=== PATIENT | male | born 1970 | race Caucasian/White ===

== ENCOUNTER → 2020-10-14 | Outpatient (CLI) | payer BC, OTHER ==
[2017-09-13 14:34] VITALS: BP 113/83
[~2020-10-14] MED LIST: ALBU2.5V8 IH; ASPI-886 PO; ATOR40TA59 PO; FEXO180T16 PO; FLUT1DIS3 IH; HYDR-2765 PO; Nicotine 21MG TD
--- NOTE | 2020-10-14 14:01 | KCIC ---
EXAM: Lumbar spine MRI without contrast. HISTORY: Lumbar radiculopathy. TECHNIQUE: Multiplanar, multisequence magnetic resonance imaging of the lumbar spine was performed wi thout contrast. COMPARISON: None. FINDINGS: There is 3 mm retrolisthesis of L5 on S1. There is degenerative endplate remodeling with di sc space narrowing at L4-L5 and L5-S1. There is additional endplate remodeling at the remainder of th e lumbar and lower thoracic levels. There are multiple endplate Schmorl's nodes. There are few osseou s hemangiomas. There is no suspicious osseous lesion. There is no fracture. The conus terminates at L 1. At L1-L2,, L2-L3 and L3-L4, there is no stenosis. At L4-L5, there is a broad-based right paracentral to right foraminal disc protrusion and annular tea r with 4 mm anterior extrusion. There is a smaller shallow left paracentral to lateral recess disc pr otrusion and annular tear with 2 mm inferior extrusion. These are superimposed on a disc bulge and ri ght lateral predominant endplate osteophytosis. There is mild bilateral facet arthropathy. There is m ild right foraminal stenosis with abutment the exiting right L4 nerve root. There is also suspected a butment or near abutment of the exiting left L4 nerve root within the extraforaminal space. There is mild central canal stenosis and effacement of the right lateral recess with deviation of the traversi ng right nerve roots. There is also narrowing of the left lateral recess and abutment the traversing left L5 nerve root. At L5-S1, there is a broad-based left paracentral to foraminal disc protrusion and annular tear with 4 mm inferior extrusion. There is also a right foraminal disc protrusion. These are superimposed on a disc bulge and endplate osteophytosis. There is retrolisthesis. There is mild to moderate right and mild left foraminal stenosis with abutment of the exiting L5 nerve roots. There is narrowing of the l eft lateral recess and abutment the traversing left S1 nerve root. IMPRESSION: Degenerative change predominantly at the lower lumbar levels, described in detail above. This is associated with mild right foraminal and central canal stenosis and effacement of the right l ateral recess and narrowing of the left lateral recess at L4-L5, and [id number] right and mild left foraminal stenosis and narrowing of the left lateral recess at L5-S1. Electronically signed by: Destiny Reed MD (10/14/2020 1:59 PM) [facility]
== END ==
LOC: KCIC MRI 12:32
PROVIDERS: ATTEND Family Medicine
DX: M47.26 Other spondylosis with radiculopathy, lumbar region (principal); M48.07 Spinal stenosis, lumbosacral region; M43.17 Spondylolisthesis, lumbosacral region
CPT/HCPCS: 72148

== ENCOUNTER → 2020-11-12 | Outpatient (CLI) | payer OTHER ==
[2017-09-13 14:34] VITALS: BP 113/83
[~2020-11-12] MED LIST changes: +CYCL10TA2 PO; +IOHEXOL 180 MG/ML 10 ML VIAL. ONE; +NAPR-514 PO; +OMEP20CA16 PO; +methylPREDNISolone ACETATE 40 MG/ML VIAL. ONE; +methylPREDNISolone ACETATE 80 MG/ML VIAL. ONE
--- NOTE | 2020-11-12 15:09 | PDOC1 ---
INITIAL PAIN CONSULT DATE OF SERVICE: DOS: DATE: 11/12/20 TIME: 15:03 CHIEF COMPLAINT: Chief Complaint: Low back and left lower extremity pain HISTORY OF PRESENT ILLNESS: 50-year-old male presents history of pain low back left lower extremity for about 2 months not the result of any specific injury or accident that he is aware of is increasing with time getting worse with time in the low back and radiating the left low back and posterior thigh posterior lateral thigh anterior thigh medial thigh posterior calf lateral calf to the ankle worse with walking and standing better with sitting or laying down but is awaken from sleep least once or twice a night patient reports it does not affect his bowel bladder control does affect his ability to walk a fair extent however he does not use any assistive devices today to ambulate. Patient rates the pain is sharp and stabbing described as shooting into the leg radiating with tingling sensations changes during the day worse with activity aching and sometimes cramping in the leg as well patient rates his disability rating 0-10 10 being worst is a 1 with family home with possibilities 8 with recreational activities 5 with social activity 6 with occupational activity 7 with sexual behavior 4 with self-care and life support activities. RI scan of the lumbar spine dated October 14, 2020 showing degenerative changes in the lower lumbar levels with mild right foraminal and central canal stenosis and effacement of the right lateral recess and narrowing of the left lateral recess at L4-5 mild to moderate right and mild left foraminal stenosis and narrowing of the left lateral recess at L5-S1. Patient reports no loss of motor function with significant fatigability of the left foot especially with weightbearing standing or walking. Patient has had some physical therapy in the past and is doing some of the exercises with that as well currently but has not decreased the pain significance also taking naproxen and a muscle relaxer Flexeril which is not decreasing the pain as well. PAST MEDICAL HISTORY: PMH: , Cigarette smoking PREVIOUS SURGERIES: Past Surgical Hx: Spinal decompression 2013 CURRENT MEDICATIONS: Current Meds: Active Scripts Medications Dose Route/Sig Max Daily Dose Days Date Category Omeprazole 20 Mg Capsule. 1 Cap PO DAILY 11/12/20 Reported Cyclobenzaprine Hcl 10 Mg Tablet 1 Tab PO TID PRN 11/12/20 Reported Naproxen 500 Mg Tablet 1 Tab PO BID PRN 30 11/12/20 Reported Atorvastatin Calcium 40 Mg Tablet 40 Mg PO QHS 30 09/13/17 Rx Aspirin Ec (Aspirin) 81 Mg Tablet.dr 81 Mg PO DAILYWBKFT 30 09/13/17 Rx ALLERGIES; Allergies: Coded Allergies: No Known Drug Allergies (Unverified , 07/12/13) FAMILY HISTORY: Family Hx: Heart disease, cancers SOCIAL HISTORY: Social Hx: Patient is alcohol very rarely smokes about a pack a day has for over 30 years does not use any illegal illicit recreational drugs lives with his spouse lives locally in [facility] REVIEW OF SYSTEMS: ROS: Positive for those items mentioned in history of present illness, all systems are reviewed, otherwise negative ,and are complete full and well-documented on patient's chart. PHYSICAL EXAM: VS: Blood pressures 160/96 pulse 78 respirations 18 temperature 98.5 F height is 5 feet 8 inches weight 178 pounds PE: PHYSICAL EXAMINATION: GENERAL: The patient is awake, alert, oriented, appropriate, very pleasant demeanor HEENT: Shows normocephalic, atraumatic. Extraocular movements are intact and symmetrical. Oral cavity: Mucous membranes moist and pink. Dentition is intact. Patient has full muniz and mustache. NECK: Shows anterior throat supple without palpable lymphadenopathy noted. Swallow reflex symmetrical. CHEST: Shows normal on inspection. Breath sounds are clear bilaterally, no rales rhonchi wheezes auscultated. HEART: Shows S1, S2 clear. No murmurs auscultated. ABDOMEN: Soft, nontender, nondistended, obese. No palpable organomegaly is noted. No rebound or guarding demonstrated. BACK: Shows spine grossly in the midline. Normal-appearing cervical lordotic curvature. There is slightly increased thoracic kyphosis, some flattening of the lumbar lordotic curvature. Lumbar paraspinous muscles show symmetrical on inspection, on palpation shows some moderate tenderness diffusely throughout the upper, middle and lower distribution of the paraspinous muscles bilaterally and also into the lower thoracic paraspinous musculature, firm and tender, but without specific trigger points, without radiation of pain. The patient has good rotational motion of the lumbar spine, both laterally as well as extension and flexion without significant difficulty. No tenderness over the spinous processes, sacrum or sacroiliac regions. EXTREMITIES: Lower extremities show deep tendon reflexes 2+ in the patellar and tendo calcaneus tendons. Motor exam is 5 on a scale of 5 with right dorsiflexion, extension, quadriceps and hamstring flexion and 4/5 on the left. Peripheral pulses are 1+ posterior tibial. No peripheral edema is noted bilaterally. Lower extremities are warm and dry to touch, equal in color and appearance. Straight leg raise noted to be negative on the right, left side is positive at approximately 40 degrees decreased with knee flexion. Gaenslen's and Kevan's maneuvers are negative bilaterally. The patient is able to stand, stand on his toes without significant difficulty but has difficulty putting all of his weight on his left leg and walks with a slight favoring gait not using any assistive devices however. SKIN: Shows warm and dry, good turgor. No edema. No sores, rashes or bruising throughout. IMPRESSION: Impression: 50-year-old male with approximate 2-month history increasing pain low back left lower extremity radicular fashion MRI scan lumbar spine as noted COPD Cigarette smoking Hearing loss Plan: Options were discussed the patient including conservative medical management physical therapies and interventional techniques. Patient would like to interventional techniques. We discussed a lumbar epidural steroid injection using description as well as anatomical models described procedure. Risks were discussed including but not limited to: Bleeding, infection, possibility of epidural hematoma and subsequent neurological compromise, dural puncture, headaches, spinal cord and/or nerve damage, side effects of steroid medication, and poor results regarding pain control. Patient understands and wished to proceed. Patient will return to the clinic in approximate 2 weeks for follow- up, was counseled as to return appointment activity level and side effects to be aware of. Procedure is lumbar epidural steroid injection under local anesthetic using sterile prep and drape at the L4-5 level using C-arm fluoroscopic guidance in both AP and lateral views medications injected is 120 mg Depo-Medrol +10mL preservative-free normal saline and 2 mL contrast- condition at discharge is stable patient tolerated procedure well had no complications. ELSA COVINGTON MD November 12, 2020 15:09
== END | disposition home or self-care (01) ==
LOC: PNCL 13:14
PROVIDERS: ATTEND Anesthesiology
DX: M54.5 Low back pain (principal); M79.605 Pain in left leg; J44.9 Chronic obstructive pulmonary disease, unspecified; F17.210 Nicotine dependence, cigarettes, uncomplicated; Z79.82 Long term (current) use of aspirin; Z79.899 Other long term (current) drug therapy; Z98.890 Other specified postprocedural states
CPT/HCPCS: 62323; J1030; J1040; Q9965

== ENCOUNTER → 2020-12-16 | Outpatient (CLI) | payer OTHER ==
[2017-09-13 14:34] VITALS: BP 113/83
--- NOTE | 2020-12-16 13:03 | PDOC4 ---
PROCEDURE Procedure Patient was consented for lumbar epidural steroid injection. Risks were dis cussed including but not limited to: Bleeding, infection, possibility of epidural hematoma and subsequent neurological compromise, dural puncture, headaches, spinal cord and/or nerve damage, side effects of steroid medication, and poor results regarding pain control. Patient understands and wished to proceed. Procedure is lumbar epidural steroid injection under local anesthetic using sterile prep and drape at the L4-5 level using C-arm fluoroscopic guidance in both AP and lateral views medications injected is 120 mg Depo-Medrol +10mL preservative-free normal saline and 2 mL contrast- condition at discharge is stable patient tolerated procedure well had no complications. ELSA COVINGTON MD Dec 16, 2020 13:03
--- NOTE | 2020-12-16 13:03 | PDOC ---
Progress Note - Pain Clinic Date of Service: DOS: DATE: 12/16/20 TIME: 13:00 Diagnosis: Dx: Lumbar degenerative lumbar degenerative disease and lumbar spinal stenosis History or Present Illness: HPI: 50-year-old male returns for follow-up status post lumbar epidural steroid. Patient reports that 80% improvement after the last injection but the pain returning after about 3 weeks where the pain is increasing the low back the left lower extremity in the posterior gluteus lateral thigh anterior thigh medial thigh and the low back bilaterally. Patient reports that sharp and tight shooting in the left lower extremity stabbing and radiating on and off in intensity patient reports is an 8 on scale 10 is worse over the past week 5 on average to its least is a 5 today. Patient reports no new motor or sensory deficit for the first 3 weeks so he was doing much better with walking standing changing positions doing work activities household activities greater ease and comfort and sleeping better at night patient reports still is not awakening from sleep at night. Patient reports no new motor or sensory deficits no new bowel or bladder incontinence or other complaints. Physical Exam: VS: Blood pressure is 129/86 pulse 81 respirations 18 temperature 90.2 F height is 5 feet 8 inches weight is 178 pounds PE: PHYSICAL EXAMINATION: GENERAL: The patient is awake, alert, oriented, appropriate, very pleasant in demeanor HEENT: Shows normocephalic, atraumatic. Extraocular movements are intact and symmetrical. Oral cavity: Mucous membranes moist and pink. Dentition is intact. NECK: Shows anterior throat supple without palpable lymphadenopathy noted. Swallow reflex symmetrical. CHEST: Shows normal on inspection. Breath sounds are clear bilaterally, coarse but no rales rhonchi or wheezes auscultated. HEART: Shows S1, S2 clear. No murmurs auscultated. ABDOMEN: Soft, nontender, nondistended, obese. No palpable organomegaly is noted. No rebound or guarding demonstrated. BACK: Shows spine grossly in the midline. Normal-appearing cervical lordotic curvature. There is slightly increased thoracic kyphosis, some minor flattening of the lumbar lordotic curvature. Lumbar paraspinous muscles show symmetrical on inspection, on palpation shows some moderate tenderness diffusely throughout the upper, middle and lower distribution of the paraspinous muscles without specific trigger points, without radiation of pain. The patient has good rotational motion of the lumbar spine, both laterally as well as extension and flexion without significant difficulty. EXTREMITIES: Lower extremities show deep tendon reflexes 2+ in the patellar and tendo calcaneus tendons. Motor exam is 5 on a scale of 5 with right dorsiflexion, extension, quadriceps and hamstring flexion and 4/5 on the left. Peripheral pulses are 1+ posterior tibial. No peripheral edema is noted bilaterally. Lower extremities are warm and dry. SKIN: Shows warm and dry, good turgor. No edema. No sores, rashes or bruising throughout. Procedure: Procedure: Options discussed with patient. Patient chart reviewed his current medication regimen updated current review of systems updated today as well. We will proceed with a second in the series lumbar epidural to injection stable fluoroscopic guidance. Risks were discussed including but not limited to: Bleeding, infection, possibility of epidural hematoma and subsequent neurological compromise, dural puncture, headaches, spinal cord and/or nerve damage, side effects of steroid medication, and poor results regarding pain control. Patient understands and wished to proceed. Patient return to the clinic in approximate 2 weeks for follow-up, was counseled as return appointment activity level and side effects to be aware of. Medication Injected: Med Injected: Procedure is lumbar epidural steroid injection under local anesthetic using sterile prep and drape at the L4-5 level using C-arm fluoroscopic guidance in both AP and lateral views medications injected is 120 mg Depo-Medrol +10mL preservative-free normal saline and 2 mL contrast- condition at discharge is stable patient tolerated procedure well had no complications. Condition at Discharge: Condition at Discharge: Condition at discharge stable, patient already the procedure well and had no complications. ELSA COVINGTON MD Dec 16, 2020 13:03
== END | disposition home or self-care (01) ==
LOC: PNCL 11:44
PROVIDERS: ATTEND Anesthesiology
DX: M51.36 Other intervertebral disc degeneration, lumbar region (principal); M48.061 Spinal stenosis, lumbar region without neurogenic claudication; J44.9 Chronic obstructive pulmonary disease, unspecified; F17.210 Nicotine dependence, cigarettes, uncomplicated; Z79.82 Long term (current) use of aspirin; Z79.899 Other long term (current) drug therapy; Z72.89 Other problems related to lifestyle; Z98.890 Other specified postprocedural states; Z82.49 Family history of ischemic heart disease and other diseases of the circulatory system
CPT/HCPCS: 62323; J1030; J1040; Q9965

== ENCOUNTER 2021-01-18 17:35 | Observation (INO) | payer OTHER ==
[~2021-01-18] VITALS: Ht 172.7 cm; Wt 79.4 kg
[~2021-01-18 17:35] MED LIST changes: -IOHEXOL 180 MG/ML 10 ML VIAL. ONE; -methylPREDNISolone ACETATE 40 MG/ML VIAL. ONE; -methylPREDNISolone ACETATE 80 MG/ML VIAL. ONE
[2021-01-18] MEDS ORDERED: NITROGLYCERIN SUBLINGUAL 0.4 MG BOTTLE OF 25. SL PRN (18:00)
[2021-01-18 18:06] LABS: BASO % 0 % (0-3); EOS # 0.3 x10^3/uL (0.0-0.7); EOS % 3 % (0-3); HEMATOCRIT 42.6 % (39.0-53.0); HEMOGLOBIN 14.5 g/dL (13.0-17.5); LYMPH # 1.7 x10^3/uL (1.0-4.8); LYMPH % 15 % (24-48); MEAN CORPUSCULAR HEMOGLOBIN 32 pg (25-35); MEAN CORPUSCULAR HGB CONC 34 g/dL (31-37); MEAN CORPUSCULAR VOLUME 94 fL (79-100); MONO # 0.7 x10^3/uL (0.0-1.1); MONO % 6 % (0-9); NEUT # 8.4 x10^3/uL (1.8-7.7); NEUT % 75 % (31-73); PLATELET COUNT 298 x10^3/uL (140-400); RED BLOOD COUNT 4.54 x10^6/uL (4.30-5.70); RED CELL DISTRIBUTION WIDTH 15.3 % (11.5-14.5); WHITE BLOOD COUNT 11.1 x10^3/uL (4.0-11.0)
[2021-01-18 18:21] LABS: CREATININE 1.2 mg/dL (0.7-1.3); GFR 64.4; POTASSIUM 4.3 mmol/L (3.5-5.1)
[2021-01-18 18:28] LABS: ALBUMIN 3.5 g/dL (3.4-5.0); ALBUMIN/GLOBULIN RATIO 0.9 (1.0-1.7); DIRECT BILIRUBIN 0.1 mg/dL (0.0-0.2); MAGNESIUM 2.2 mg/dL (1.8-2.4); TOTAL BILIRUBIN 0.5 mg/dL (0.2-1.0); TOTAL PROTEIN 7.4 g/dL (6.4-8.2)
[2021-01-18] MEDS ORDERED: ASPIRIN CHEWABLE 81 MG TABLET. PO ONE (18:30)
--- NOTE | 2021-01-18 18:30 | RAD ---
AP chest. HISTORY: Chest pain AP view was taken of the chest. Lungs are free of infiltrates. Heart is normal in size. There is no p leural effusion. IMPRESSION: 1. No acute infiltrates. Electronically signed by: Greg Perez MD (01/18/2021 6:28 PM) [facility]
[2021-01-18] MEDS ORDERED: MORPHINE SULFATE 4 MG/ML INJ. IV PRN (20:15)
--- NOTE | 2021-01-18 20:20 | PHYS DOC ---
Past Medical History Past Medical History: Asthma, COPD (MIKE FABIAN APRN) Past Surgical History: No Surgical History (MIKE FABIAN APRN) Smoking Status: Current Every Day Smoker Alcohol Use: None Drug Use: None (MIKE FABIAN APRN) General Adult EDM: Chief Complaint: CHEST PAIN HPI: HPI: Patient is a 50 year old male presents to the emergency department with chief complaint of left-sided chest pain that started last night, patient states it did not hurt so much last night but when he woke up this morning it was at an 8 out of 10. Patient states he did not take any medications for this pain. Patient states he does come to the emergency department for evaluation as he has had an IL in the past. Patient reports he was told he had a IL 3 years ago, reports a negative heart cath and did not have any stents placed. Patient states he is not followed up with a hoe runner as was recommended. Patient states he just did not feel like following up. Patient reports he does smoke cigarettes, drinks an occasional beer every now and then, does not use any illicit drugs. Patient states he takes an 81 mg aspirin daily, omeprazole, and allergy pill, ProAir and Advair for COPD. Patient denies shortness of breath, denies any increased pain with inspiration or expiration or movement. Patient states the pain is constant and does not radiate. Patient denies any diaphoretic episodes. Patient denies any recent fever or chills, denies nausea, vomiting, diarrhea, or abdominal pain. Patient denies any increased thirst or increased urination. She denies any rashes of his skin. Patient states he has not had the COVID-19 vaccination, patient denies any need for this vaccination. Patient denies any other physical complaints or physical concerns. (MIKE FABIAN APRN) Review of Systems: Review of Systems: 14 body systems of review of systems have been reviewed. See HPI for pertinent positives and negative responses, otherwise all other systems are negative, nonpertinent or noncontributory. Constitutional: Negative except as outlined in HPI above. Skin: Negative except as outlined in HPI above. Eyes: Negative except as outlined in HPI above. HENT: Negative except as outlined in HPI above. Respiratory: Negative except as outlined in HPI above. Cardiovascular: Negative except as outlined in HPI above. GI: Negative except as outlined in HPI above. : Negative except as outlined in HPI above. Musculoskeletal: Negative except as outlined in HPI above. Integument: Negative except as outlined in HPI above. Neurologic: Negative except as outlined in HPI above. Endocrine: Negative except as outlined in HPI above. Lymphatic: Negative except as outlined in HPI above. Psychiatric: Negative except as outlined in HPI above. (MIKE FABIAN APRN) Heart Score: C/O Chest Pain: Yes HEART Score for Chest Pain: HEART Score for Chest Pain Response (Comments) Value History Moderately Suspicious 1 ECG Normal 0 Age >45 - < 65 1 Risk Factors 1 or 2 Risk Factors 1 Troponin < Normal Limit 0 Total 3 Risk Factors: Risk Factors: DM, Current or recent (<one month) smoker, HTN, HLP, family history of CAD, obesity. Risk Scores: Score 0 - 3: 2.5% MACE over next 6 weeks - Discharge Home Score 4 - 6: 20.3% MACE over next 6 weeks - Admit for Clinical Observation Score 7 - 10: 72.7% MACE over next 6 weeks - Early Invasive Strategies (MIKE FABIAN APRN) Current Medications: Current Medications Medications (Trade) Dose Ordered Sig/Neri Start Time Stop Time Status Last Admin Dose Admin Aspirin (Aspirin Chewable) 243 mg 1X ONCE 01/18/21 18:30 01/18/21 18:31 DC 01/18/21 18:57 243 MG Nitroglycerin (Nitrostat) 0.4 mg PRN Q5MIN PRN 01/18/21 18:00 01/19/21 17:59 01/18/21 19:01 0.4 MG (MIKE FABIAN APRN) Allergies: Allergies: Allergies Coded Allergies Type Severity Reaction Last Updated Verified No Known Drug Allergies 07/12/13 No (MIKE FABIAN APRN) Physical Exam: PE: Constitutional: Well developed, well nourished, no acute distress, non-toxic appearance. 50-year-old male appears uncomfortable, is holding the left side of his chest. HENT: Normocephalic, atraumatic. Eyes: Conjunctiva normal, no discharge. Neck: Normal range of motion, no stridor. Cardiovascular: No cyanosis appreciated, distal cap refill less than 2 seconds. Heart sounds S1-S2, no regular rate and rhythm, no murmur appreciated. Lungs & Thorax: Patient is in no respiratory distress, no audible adventitious lung sounds appreciated. Lung sounds clear all lung rdoas, no adventitious lung sounds appreciated. Abdomen: Nontender, no abnormalities noted. Skin: Warm, dry, no erythema, no rash. Back: No tenderness, no deformities. Extremities: No tenderness, no cyanosis, no clubbing, ROM intact, no edema. Neurologic: Alert and oriented X 3, normal motor function, normal sensory function, no focal deficits noted. Psychologic: Affect normal, judgement normal, mood normal. (MIKE FABIAN APRN) Current Patient Data: Labs: Laboratory Tests Test 01/18/21 17:48 White Blood Count 11.1 x10^3/uL (4.0-11.0) H Red Blood Count 4.54 x10^6/uL (4.30-5.70) Hemoglobin 14.5 g/dL (13.0-17.5) Hematocrit 42.6 % (39.0-53.0) Mean Corpuscular Volume 94 fL (79-100) Mean Corpuscular Hemoglobin 32 pg (25-35) Mean Corpuscular Hemoglobin Concent 34 g/dL (31-37) Red Cell Distribution Width 15.3 % (11.5-14.5) H Platelet Count 298 x10^3/uL (140-400) Neutrophils (%) (Auto) 75 % (31-73) H Lymphocytes (%) (Auto) 15 % (24-48) L Monocytes (%) (Auto) 6 % (0-9) Eosinophils (%) (Auto) 3 % (0-3) Basophils (%) (Auto) 0 % (0-3) Neutrophils # (Auto) 8.4 x10^3/uL (1.8-7.7) H Lymphocytes # (Auto) 1.7 x10^3/uL (1.0-4.8) Monocytes # (Auto) 0.7 x10^3/uL (0.0-1.1) Eosinophils # (Auto) 0.3 x10^3/uL (0.0-0.7) Basophils # (Auto) 0.0 x10^3/uL (0.0-0.2) Sodium Level 135 mmol/L (136-145) L Potassium Level 4.3 mmol/L (3.5-5.1) Chloride Level 99 mmol/L (98-107) Carbon Dioxide Level 30 mmol/L (21-32) Anion Gap 6 (6-14) Blood Urea Nitrogen 17 mg/dL (8-26) Creatinine 1.2 mg/dL (0.7-1.3) Estimated GFR (Cockcroft-Gault) 64.4 BUN/Creatinine Ratio 14 (6-20) Glucose Level 116 mg/dL (70-99) H Calcium Level 9.0 mg/dL (8.5-10.1) Magnesium Level 2.2 mg/dL (1.8-2.4) Total Bilirubin 0.5 mg/dL (0.2-1.0) Direct Bilirubin 0.1 mg/dL (0.0-0.2) Aspartate Amino Transferase (AST) 22 U/L (15-37) Alanine Aminotransferase (ALT) 43 U/L (16-63) Alkaline Phosphatase 212 U/L (46-116) H Troponin I Quantitative < 0.017 ng/mL (0.000-0.055) KD-Jnl-G-Type Natriuretic Peptide 102 pg/mL (0-124) Total Protein 7.4 g/dL (6.4-8.2) Albumin 3.5 g/dL (3.4-5.0) Albumin/Globulin Ratio 0.9 (1.0-1.7) L Lipase 97 U/L (73-393) Laboratory Tests 01/18/21 17:48 Laboratory Tests 01/18/21 17:48 Vital Signs: Vital Signs Date Time Temp Pulse Resp B/P (MAP) Pulse Ox O2 Delivery O2 Flow Rate FiO2 01/18/21 19:01 91 149/81 01/18/21 17:36 98.5 16 100 Room Air 98.5 (MIKE FABIAN APRN) EKG: EKG: EKG performed at 1740 by ED nursing staff shows a normal sinus rhythm without ectopy heart rate 96 bpm, TN interval 0.130, QTc interval 0.433, no ACS, no acute STEMI, no ischemia appreciated, EKG interpreted by ED attending physician Dr. Jameson. Serial EKG #2 performed at 1900 by ED nursing staff shows a normal sinus rhythm without ectopy, heart rate 91 bpm, TN interval 0.132, QTc interval 0.433, no acute STEMI, no ACS, no acute ischemia appreciated, EKG interpreted by ED attending physician Dr. Winchester. (MIKE FABIAN APRN) Radiology/Procedures: Radiology/Procedures: PATIENT: JAMES HUNTER ACCOUNT: [id number] : 1970 LOCATION: ER AGE: 50 SEX: M EXAM STATUS: REG ER ORD. PHYSICIAN: MIKE FABIAN APRN REASON: CHEST PAIN PROCEDURE: PORTABLE CHEST 1V AP chest. HISTORY: Chest pain AP view was taken of the chest. Lungs are free of infiltrates. Heart is normal in size. There is no pleural effusion. IMPRESSION: 1. No acute infiltrates. Electronically signed by: Greg Perez MD (01/18/2021 6:28 PM) [facility] DICTATED and SIGNED BY: GREG PEREZ MD DATE: 01/18/21 [id number] (MIKE FABIAN APRN) Course & Med Decision Making: Course & Med Decision Making Pertinent Labs and Imaging studies reviewed. (See chart for details) 50-year-old male, vital signs reviewed, presents emergency department concerning chest pain that started last night as mild and was worse when he woke up this morning. Patient physical examination was on remarkable however patient did appear uncomfortable during examination. With patient's report of IL 3 years ago without follow-up with cardiology and continues to be a daily cigarette smoker will order ED chest pain work-up with serial EKGs and serial troponin I. Patient's chest x-ray unremarkable, serial EKG unremarkable, no change between first and second EKG. Ordered sublingual nitro 0.4 mg, ED nursing staff unable to complete related to ED staffing. Upon reexamination of patient, the patient states that he was given 1 sublingual nitroglycerin which seemed to help his pain from an 8 or 9 down to about a 5 of 10. I personally administered the second sublingual nitro with pain of a 5 out of 10, vital signs within normal limits, patient reports his first dose was approximately 15 minutes prior to my administration of the second nitroglycerin. After period of 5 minutes patient reports his pain had reduced down to a 1 or 2, reassessment of vital signs within normal limits however patient did become slightly tachycardic with heart rate of 108. No drop in systolic or diastolic blood pressure, third nitroglycerin given. After a 5-minute period of time while waiting at bedside, patient states his pain is "virtually gone "reports it is less than a 1. Patient had no change in blood pressure upon reassessment of vital signs, patient's heart rate at 101 bpm. Patient denies any chest palpitations. Discussed with patient labs were nonconcerning for acute IL however with patient's response to nitroglycerin recommended admission for unstable angina with healthcare management by [facility] hospitalist, cardiology consult for morning, continual cardiac monitoring overnight. Patient is amenable to this plan. Called and discussed patient case and emergency department work-up with [facility] hospitalist Dr. Sargent who agrees the patient's presentation and case warrants admission to the CVC unit. Will consult cardiology for a.m. examination, Dr. Sargent will come evaluate patient for admission and further care. Patient remains hemodynamically stable, nontoxic in appearance, and in no apparent distress at this time, Dr. Sargent has assumed patient care at this time. (MIKE FABIAN APRN) Course & Med Decision Making Patients Care and treatment plan provided by ER Nurse Practitioner. I was available for consult. Patient's chart reviewed. (NYA WINCHESTER DO) Marge Disclaimer: Marge Disclaimer: This electronic medical record was generated, in whole or in part, using a voice recognition dictation system. (MIKE FABIAN APRN) Departure Departure Impression: Primary Impression: Unstable angina Additional Impression: Chest pain Qualified Codes: I20.0 - Unstable angina Disposition: ADMITTED INPATIENT Admitting Physician: [place] (Admit to CVC unit for Dr. Sargent.) (MIKE FABIAN APRN) Condition: STABLE Referrals: KALIE GUAJARDO MD (PCP) Scripts Isosorbide Mononitrate (ISOSORBIDE MONONITRATE ER) 30 Mg Tab.er.24h 1 TAB PO DAILY for Angina, #30 TAB 5 Refills Prov: COREY SARGENT MD 01/20/21 Metoprolol Succinate (METOPROLOL SUCCINATE ( XL )) 25 Mg Tab.er.24h 25 MG PO DAILY for HTN for 30 Days, #30 TAB.SR 2 Refills Prov: COREY SARGENT MD 01/20/21 MIKE FABIAN APRN Jan 18, 2021 20:20 NYA WINCHESTER DO Jan 20, 2021 20:24
--- NOTE | 2021-01-18 20:23 | PDOC1 ---
History and Physical Date of Admission Date of Admission DATE: 01/18/21 TIME: :14 Identification/Chief Complaint Chief Complaint Chest pain Source Source: Chart review, Patient History of Present Illness History of Present Illness Patient 50-year-old male with past medical history COPD, HLD, GERD, chronic back pain, who presents to the ED with complaints of left-sided chest pain since last night. He reports sharp chest pain, 8/10. He did not try any medications for symptoms prior to coming to the ED for further evaluation. Upon arrival in the ED EKG showed no evidence of acute ischemic changes and chest x-ray showed no acute process. Labs on admission showed WBC 11.1, CBG 116, troponin <0.017. He states his symptoms improve with nitroglycerin, at time of my evaluation rates his pain 1/10. States his current pain is not similar to his history of GERD. Will admit patient for further medical management. Past Medical History Cardiovascular: No pertinent hx Pulmonary: Asthma, COPD CENTRAL NERVOUS SYSTEM: Migraine GI: GERD Heme/Onc: No pertinent hx Hepatobiliary: No pertinent hx Psych: No pertinent hx Musculoskeletal: Osteoarthritis, Other Renal/: No pertinent hx Endocrine: No pertinent hx Past Surgical History Past Surgical History: Other (Neck surgery) Family History Family History: Heart Disease ([place]) Social History Smoke: 1 pack per day ALCOHOL: occassional Drugs: None Current Medications Current Medications Current Medications Aspirin (Aspirin Chewable) 243 mg 1X ONCE PO Last administered on 01/18/21at 18:57; Start 01/18/21 at 18:30; Stop 01/18/21 at 18:31; Status DC Nitroglycerin (Nitrostat) 0.4 mg PRN Q5MIN PRN SL CP RATING > 1/10 Last administered on 01/18/21at 19:01; Start 01/18/21 at 18:00; Stop 01/19/21 at 17:59 Active Scripts Active Atorvastatin Calcium 40 Mg Tablet 40 Mg PO QHS 30 Days Aspirin Ec (Aspirin) 81 Mg Tablet. 81 Mg PO DAILYWBKFT 30 Days Reported Omeprazole 20 Mg Capsule. 1 Cap PO DAILY Cyclobenzaprine Hcl 10 Mg Tablet 1 Tab PO TID PRN Naproxen 500 Mg Tablet 1 Tab PO BID PRN 30 Days Allergies Allergies: Coded Allergies: No Known Drug Allergies (Unverified , 07/12/13) ROS Review of System GENERAL: No history of weight change, weakness or fevers. SKIN: No bruising, hair changes or rashes. EYES: No blurred, double or loss of vision. NOSE AND THROAT: No history of nosebleeds, hoarseness or sore throat. HEART: Chest pain, denies palpitations. LUNGS: Denies cough, hemoptysis, wheezing or shortness of breath. GASTROINTESTINAL: Denies nausea, vomiting, abdominal pain. GENITOURINARY: Denies dysuria, frequency, urgency, hematuria. NEUROLOGIC: Denies history of numbness, tingling, tremor or weakness. PSYCHIATRIC: Denies anxiety, denies depression. ENDOCRINE: No history of heat or cold intolerance, polyuria or polydipsia. EXTREMITIES: Denies muscle weakness, joint pain, pain on walking or stiffness. Physical Exam Physical Exam General: Alert, Oriented X3, Cooperative, No acute distress HEENT: PERRLA, EOMI Lungs: Clear to auscultation, Normal air movement Heart: RRR, no murmurs Cardiovascular: S1, S2 Abdomen: Normal bowel sounds, Soft, No tenderness Extremities: No clubbing, No cyanosis Skin: No rashes, No significant lesion Neuro: Normal speech, Normal tone, Sensation intact Psych/Mental Status: Mental status NL, Mood NL Vitals Vitals Vital Signs Date Time Temp Pulse Resp B/P (MAP) Pulse Ox O2 Delivery O2 Flow Rate FiO2 01/18/21 19:35 108 16 120/69 (86) 99 Room Air 01/18/21 17:36 98.5 98.5 Labs Labs Laboratory Tests Test 01/18/21 17:48 White Blood Count 11.1 x10^3/uL (4.0-11.0) Red Blood Count 4.54 x10^6/uL (4.30-5.70) Hemoglobin 14.5 g/dL (13.0-17.5) Hematocrit 42.6 % (39.0-53.0) Mean Corpuscular Volume 94 fL (79-100) Mean Corpuscular Hemoglobin 32 pg (25-35) Mean Corpuscular Hemoglobin Concent 34 g/dL (31-37) Red Cell Distribution Width 15.3 % (11.5-14.5) Platelet Count 298 x10^3/uL (140-400) Neutrophils (%) (Auto) 75 % (31-73) Lymphocytes (%) (Auto) 15 % (24-48) Monocytes (%) (Auto) 6 % (0-9) Eosinophils (%) (Auto) 3 % (0-3) Basophils (%) (Auto) 0 % (0-3) Neutrophils # (Auto) 8.4 x10^3/uL (1.8-7.7) Lymphocytes # (Auto) 1.7 x10^3/uL (1.0-4.8) Monocytes # (Auto) 0.7 x10^3/uL (0.0-1.1) Eosinophils # (Auto) 0.3 x10^3/uL (0.0-0.7) Basophils # (Auto) 0.0 x10^3/uL (0.0-0.2) Sodium Level 135 mmol/L (136-145) Potassium Level 4.3 mmol/L (3.5-5.1) Chloride Level 99 mmol/L (98-107) Carbon Dioxide Level 30 mmol/L (21-32) Anion Gap 6 (6-14) Blood Urea Nitrogen 17 mg/dL (8-26) Creatinine 1.2 mg/dL (0.7-1.3) Estimated GFR (Cockcroft-Gault) 64.4 BUN/Creatinine Ratio 14 (6-20) Glucose Level 116 mg/dL (70-99) Calcium Level 9.0 mg/dL (8.5-10.1) Magnesium Level 2.2 mg/dL (1.8-2.4) Total Bilirubin 0.5 mg/dL (0.2-1.0) Direct Bilirubin 0.1 mg/dL (0.0-0.2) Aspartate Amino Transf (AST/SGOT) 22 U/L (15-37) Alanine Aminotransferase (ALT/SGPT) 43 U/L (16-63) Alkaline Phosphatase 212 U/L (46-116) Troponin I Quantitative < 0.017 ng/mL (0.000-0.055) GJ-Bte-P-Type Natriuretic Peptide 102 pg/mL (0-124) Total Protein 7.4 g/dL (6.4-8.2) Albumin 3.5 g/dL (3.4-5.0) Albumin/Globulin Ratio 0.9 (1.0-1.7) Lipase 97 U/L (73-393) Laboratory Tests Test 01/18/21 17:48 White Blood Count 11.1 x10^3/uL (4.0-11.0) Red Blood Count 4.54 x10^6/uL (4.30-5.70) Hemoglobin 14.5 g/dL (13.0-17.5) Hematocrit 42.6 % (39.0-53.0) Mean Corpuscular Volume 94 fL (79-100) Mean Corpuscular Hemoglobin 32 pg (25-35) Mean Corpuscular Hemoglobin Concent 34 g/dL (31-37) Red Cell Distribution Width 15.3 % (11.5-14.5) Platelet Count 298 x10^3/uL (140-400) Neutrophils (%) (Auto) 75 % (31-73) Lymphocytes (%) (Auto) 15 % (24-48) Monocytes (%) (Auto) 6 % (0-9) Eosinophils (%) (Auto) 3 % (0-3) Basophils (%) (Auto) 0 % (0-3) Neutrophils # (Auto) 8.4 x10^3/uL (1.8-7.7) Lymphocytes # (Auto) 1.7 x10^3/uL (1.0-4.8) Monocytes # (Auto) 0.7 x10^3/uL (0.0-1.1) Eosinophils # (Auto) 0.3 x10^3/uL (0.0-0.7) Basophils # (Auto) 0.0 x10^3/uL (0.0-0.2) Sodium Level 135 mmol/L (136-145) Potassium Level 4.3 mmol/L (3.5-5.1) Chloride Level 99 mmol/L (98-107) Carbon Dioxide Level 30 mmol/L (21-32) Anion Gap 6 (6-14) Blood Urea Nitrogen 17 mg/dL (8-26) Creatinine 1.2 mg/dL (0.7-1.3) Estimated GFR (Cockcroft-Gault) 64.4 BUN/Creatinine Ratio 14 (6-20) Glucose Level 116 mg/dL (70-99) Calcium Level 9.0 mg/dL (8.5-10.1) Magnesium Level 2.2 mg/dL (1.8-2.4) Total Bilirubin 0.5 mg/dL (0.2-1.0) Direct Bilirubin 0.1 mg/dL (0.0-0.2) Aspartate Amino Transf (AST/SGOT) 22 U/L (15-37) Alanine Aminotransferase (ALT/SGPT) 43 U/L (16-63) Alkaline Phosphatase 212 U/L (46-116) Troponin I Quantitative < 0.017 ng/mL (0.000-0.055) WX-Aug-Z-Type Natriuretic Peptide 102 pg/mL (0-124) Total Protein 7.4 g/dL (6.4-8.2) Albumin 3.5 g/dL (3.4-5.0) Albumin/Globulin Ratio 0.9 (1.0-1.7) Lipase 97 U/L (73-393) Images Images PATIENT: JAMES HUNTER ACCOUNT: [id number] : 1970 LOCATION: ER AGE: 50 SEX: M EXAM STATUS: REG ER ORD. PHYSICIAN: MIKE FABIAN APRN REASON: CHEST PAIN PROCEDURE: PORTABLE CHEST 1V AP chest. HISTORY: Chest pain AP view was taken of the chest. Lungs are free of infiltrates. Heart is normal in size. There is no pleural effusion. IMPRESSION: 1. No acute infiltrates. VTE Prophylaxis Ordered VTE Prophylaxis Devices: No VTE Pharmacological Prophylaxi: Yes Assessment/Plan Assessment/Plan Chest pain HLD GERD Chronic back pain Plan: Initial troponin <0.017; will continue to trend and place consultation to cardiology Morphine, nitroglycerin as needed No specific ST changes noted on EKG Lipid panel pending [facility] (09/13/17) that showed no significant coronary artery disease, hyperdynamic left ventricular systolic function with ejection fraction estimated at 75-80%; recommended medical management. Echocardiogram pending Resume home medications FEN - Cardiac diet PPX - Heparin FULL CODE Dispo - inpatient for above Advance Care Planning: Total time spent [id number] with patient 16 minutes in discussion with goals of care, comfort care, end-of-life care, pain management, code status; patient names his (Jaquelin Hunter) as surrogate decision-maker. Justifications for Admission Other Justification COREY SARGENT MD Jan 18, 2021 20:23
[2021-01-18] MEDS ORDERED: MAGNESIUM HYDROXIDE 2,400 MG/30 ML ORAL.SUSP. PO PRN (20:30)
[2021-01-18] MEDS ORDERED: ONDANSETRON PF 4 MG/2 ML VIAL. IVP PRN (20:30)
[2021-01-18] MEDS ORDERED: MAG HYDROX/ALUMINUM HYD/SIMETH 30 ML ORAL.SUSP PO PRN (20:30)
[2021-01-18] MEDS ORDERED: CALCIUM CARBONATE 500 MG TAB.CHEW PO PRN (20:30)
[2021-01-18] MEDS ORDERED: ACETAMINOPHEN 325 MG TABLET. PO PRN (20:30)
[2021-01-18] MEDS ORDERED: HYDROcodone/APAP 5/325MG 1 TAB TABLET PO PRN (20:30)
[2021-01-18] MEDS ORDERED: CYCLOBENZAPRINE 10 MG TABLET. PO PRN (20:30)
--- NOTE | 2021-01-18 20:47 | EKG ---
[facility] [address] [place] [address] Test Date: 2021-01-18 Test Time: 17:40:44 Pat Name: JAMES HUNTER Department: Room: Gender: M Family Law Attorney: : 1970 Requested By: MIKE FABIAN Order Number: [id number] Reading MD: Measurements Intervals Rena Lara Rate: 96 P: 61 NH: 130 QRS: 56 QRSD: 84 T: 46 QT: 342 QTc: 433 Interpretive Statements SINUS RHYTHM NO SPECIFIC ECG ABNORMALITIES RI6.01 No previous ECG available for comparison
--- NOTE | 2021-01-18 20:49 | EKG ---
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
[2021-01-18] MEDS: ATORVASTATIN CALCIUM 40 MG TABLET. PO SCH (21:11)
[2021-01-18] MEDS: HEPARIN for SUB-Q USE 5,000 UNIT/ML VIAL. SQ SCH (21:12)
[2021-01-18 22:00] VITALS: BP 155/95
[2021-01-18 22:15] VITALS: BP 124/80
[2021-01-18 22:30] VITALS: BP 145/79
[2021-01-18 22:45] VITALS: BP 141/92
[2021-01-18 23:00] VITALS: BP 137/86
[2021-01-18] MEDS: ZOLPIDEM 5 MG TABLET. PO PRN (23:04)
[2021-01-18] MEDS: NICOTINE 21MG PATCH. TD SCH (23:04)
[2021-01-19 03:00] VITALS: BP 133/85
[2021-01-19 05:50] LABS: HEMATOCRIT 41.3 % (39.0-53.0); RED BLOOD COUNT 4.41 x10^6/uL (4.30-5.70); RED CELL DISTRIBUTION WIDTH 15.2 % (11.5-14.5); WHITE BLOOD COUNT 7.8 x10^3/uL (4.0-11.0)
--- NOTE | 2021-01-19 06:00 | NUR ---
Pt has had no c/o chest pain since coming to the floor. Did c/o H/A due to Nitro but it was relieved with Tylenol. Has slept well between lab draws and nursing cares.
[2021-01-19 06:06] LABS: CALCIUM 8.6 mg/dL (8.5-10.1); CREATININE 1.1 mg/dL (0.7-1.3); GFR 71.1; POTASSIUM 3.9 mmol/L (3.5-5.1)
[2021-01-19 06:16] LABS: CHOLESTEROL/HDL RATIO 3.7
[2021-01-19] MEDS: HEPARIN for SUB-Q USE 5,000 UNIT/ML VIAL. SQ SCH ×3 (06:41→22:00)
[2021-01-19 07:00] VITALS: BP 142/96
--- NOTE | 2021-01-19 07:08 | PDOC ---
[facility] [facility] PROGRESS NOTE Date of Service DOS: DATE: 01/19/21 TIME: 07:04 Chief Complaint Chief Complaint Chest pain HLD GERD Chronic back pain Plan: Initial troponin <0.017; will continue to trend and place consultation to cardiology Morphine, nitroglycerin as needed No specific ST changes noted on EKG Lipid panel pending Had [facility] (09/13/17) that showed no significant coronary artery disease, hyperdynamic left ventricular systolic function with ejection fraction estimated at 75-80%; recommended medical management. Echocardiogram pending Resume home medications FEN - Cardiac diet PPX - Heparin FULL CODE Dispo - inpatient for above Advance Care Planning: Total time spent [id number] with patient 16 minutes in discussion with goals of care, comfort care, end-of-life care, pain management, code status; patient names his (Jaquelin Velazquez) as surrogate decision-maker. History of Present Illness History of Present Illness Patient 50-year-old male with past medical history COPD, HLD, GERD, chronic back pain, who presents to the ED with complaints of left-sided chest pain since last night. He reports sharp chest pain, 8/10. He did not try any medications for symptoms prior to coming to the ED for further evaluation. Upon arrival in the ED EKG showed no evidence of acute ischemic changes and chest x-ray showed no acute process. Labs on admission showed WBC 11.1, CBG 116, troponin <0.017. He states his symptoms improve with nitroglycerin, at time of my evaluation rates his pain 1/10. States his current pain is not similar to his history of GERD. Will admit patient for further medical management. 01/19/2021: Afebrile. Troponins <0.017x3. Denies any worsening of chest pain. Echocardiogram pending. Had discussion with Dr. Vu, given significant risk factors, presenting symptom, and significantly family history, family and patient are agreeable to left heart cath tomorrow. Vitals/I&O Vitals/I&O: Vital Signs Date Time Temp Pulse Resp B/P (MAP) Pulse Ox O2 Delivery O2 Flow Rate FiO2 01/19/21 03:00 98.3 77 14 133/85 (101) 98 Room Air 98.3 I & O 01/18/21 01/18/21 01/19/21 14:59 22:59 06:59 Intake Total 240 ml Output Total 0 ml Balance 240 ml Physical Exam General: Alert, Oriented X3, Cooperative, mild distress Heart: Regular rate Lungs: Clear Abdomen: Soft, No tenderness Extremities: No clubbing, No cyanosis Skin: No rashes, No breakdown Labs Labs: Laboratory Tests Test 01/18/21 17:48 01/18/21 21:03 01/19/21 00:11 01/19/21 05:02 White Blood Count 11.1 x10^3/uL (4.0-11.0) 7.8 x10^3/uL (4.0-11.0) Red Blood Count 4.54 x10^6/uL (4.30-5.70) 4.41 x10^6/uL (4.30-5.70) Hemoglobin 14.5 g/dL (13.0-17.5) 14.0 g/dL (13.0-17.5) Hematocrit 42.6 % (39.0-53.0) 41.3 % (39.0-53.0) Mean Corpuscular Volume 94 fL (79-100) 94 fL (79-100) Mean Corpuscular Hemoglobin 32 pg (25-35) 32 pg (25-35) Mean Corpuscular Hemoglobin Concent 34 g/dL (31-37) 34 g/dL (31-37) Red Cell Distribution Width 15.3 % (11.5-14.5) 15.2 % (11.5-14.5) Platelet Count 298 x10^3/uL (140-400) 263 x10^3/uL (140-400) Neutrophils (%) (Auto) 75 % (31-73) Lymphocytes (%) (Auto) 15 % (24-48) Monocytes (%) (Auto) 6 % (0-9) Eosinophils (%) (Auto) 3 % (0-3) Basophils (%) (Auto) 0 % (0-3) Neutrophils # (Auto) 8.4 x10^3/uL (1.8-7.7) Lymphocytes # (Auto) 1.7 x10^3/uL (1.0-4.8) Monocytes # (Auto) 0.7 x10^3/uL (0.0-1.1) Eosinophils # (Auto) 0.3 x10^3/uL (0.0-0.7) Basophils # (Auto) 0.0 x10^3/uL (0.0-0.2) Sodium Level 135 mmol/L (136-145) 135 mmol/L (136-145) Potassium Level 4.3 mmol/L (3.5-5.1) 3.9 mmol/L (3.5-5.1) Chloride Level 99 mmol/L (98-107) 100 mmol/L (98-107) Carbon Dioxide Level 30 mmol/L (21-32) 25 mmol/L (21-32) Anion Gap 6 (6-14) 10 (6-14) Blood Urea Nitrogen 17 mg/dL (8-26) 15 mg/dL (8-26) Creatinine 1.2 mg/dL (0.7-1.3) 1.1 mg/dL (0.7-1.3) Estimated GFR (Cockcroft-Gault) 64.4 71.1 BUN/Creatinine Ratio 14 (6-20) Glucose Level 116 mg/dL (70-99) 104 mg/dL (70-99) Calcium Level 9.0 mg/dL (8.5-10.1) 8.6 mg/dL (8.5-10.1) Magnesium Level 2.2 mg/dL (1.8-2.4) Total Bilirubin 0.5 mg/dL (0.2-1.0) Direct Bilirubin 0.1 mg/dL (0.0-0.2) Aspartate Amino Transf (AST/SGOT) 22 U/L (15-37) Alanine Aminotransferase (ALT/SGPT) 43 U/L (16-63) Alkaline Phosphatase 212 U/L (46-116) Troponin I Quantitative < 0.017 ng/mL (0.000-0.055) < 0.017 ng/mL (0.000-0.055) < 0.017 ng/mL (0.000-0.055) YT-Emk-S-Type Natriuretic Peptide 102 pg/mL (0-124) Total Protein 7.4 g/dL (6.4-8.2) Albumin 3.5 g/dL (3.4-5.0) Albumin/Globulin Ratio 0.9 (1.0-1.7) Lipase 97 U/L (73-393) Triglycerides Level 66 mg/dL (0-150) Cholesterol Level 189 mg/dL (0-200) LDL Cholesterol, Calculated 125 mg/dL (0-100) VLDL Cholesterol, Calculated 13 mg/dL (0-40) Non-HDL Cholesterol Calculated 138 mg/dL (0-129) HDL Cholesterol 51 mg/dL (40-60) Cholesterol/HDL Ratio 3.7 Assessment and Plan Assessmemt and Plan Problems Medical Problems: (1) Unstable angina Status: Acute Comment Review of Relevant I have reviewed the following items myrna (where applicable) has been applied. Medications: Current Medications Medications (Trade) Dose Ordered Sig/Neri Route PRN Reason Start Time Stop Time Status Last Admin Dose Admin Aspirin (Aspirin Chewable) 243 mg 1X ONCE PO 01/18/21 18:30 01/18/21 18:31 DC 01/18/21 18:57 Nitroglycerin (Nitrostat) 0.4 mg PRN Q5MIN PRN SL CP RATING > 1/10 01/18/21 18:00 01/19/21 17:59 01/18/21 19:01 Nicotine (Nicoderm Cq 21mg) 1 patch DAILY TD 01/18/21 23:00 01/18/21 23:04 Atorvastatin Calcium (Lipitor) 40 mg QHS PO 01/18/21 21:00 01/18/21 21:11 Zolpidem Tartrate (Ambien) 5 mg PRN QHS PRN PO INSOMNIA, MAY REPEAT IN 1HR 01/18/21 20:30 01/18/21 23:04 Acetaminophen (Tylenol) 650 mg PRN Q6HRS PRN PO Headaches, Temp > 101.5F 01/18/21 20:30 01/19/21 01:57 Heparin Sodium (Porcine) (Heparin Sodium) 5,000 unit Q8HRS SQ 01/18/21 22:00 01/19/21 06:41 Justifications for Admission Other Justification COREY SARGENT MD Jan 19, 2021 07:07
[2021-01-19] MEDS: ASPIRIN ENTERIC COATED 81 MG TABLET.DR. PO SCH (08:39)
[2021-01-19] MEDS: PANTOPRAZOLE 40 MG TABLET.DR. PO SCH (08:39)
[2021-01-19] MEDS: NICOTINE 21MG PATCH. TD SCH (08:39)
[2021-01-19] MEDS: HYDROcodone/APAP 5/325MG 1 TAB TABLET PO PRN ×2 (08:44→21:01)
[2021-01-19 10:38] VITALS: BP 115/74
--- NOTE | 2021-01-19 13:26 | PDOC2 ---
CARDIAC CONSULT DATE OF CONSULT Date of Consult DATE: 01/19/21 TIME: 13:18 REASON FOR CONSULT Reason for Consult: Chest pain REFERRING PHYSICIAN Referring Physician: Emeterio Todd APRN SOURCE Source: Chart review, Patient HISTORY OF PRESENT ILLNESS HISTORY OF PRESENT ILLNESS This is a 50 yo male who presented secondary to chest pain. Patient reports pain began the night before last. Has been constant. Located in his lower left chest. Describes as stabbing in nature. No worsened with deep breathing, movement, or by applying pressure to the area. No associated dizziness, palpitations, shortness of breath, or nausea/vomiting. Did have some diaphoresis. Pain does not radiate. Do to ongoing pain, he came to the ED for further evaluation on treatment. No prior h/o CAD. Does has history of COPD with ongoing tobaccoism. Also reports chronic cough. Nop worse than usual, recently. No recent fevers or illness. Pain improved with secondary nitro and with Lortab. PAST MEDICAL HISTORY Pulmonary: Asthma, COPD, Other (RAHEL) GI: GERD PAST SURGICAL HISTORY Past Surgical History: No pertinent history FAMILY HISTORY Family History: Heart Disease (father with CABG with 50's ) SOCIAL HISTORY Smoke: <1 pack per day ALCOHOL: other (quit ) Drugs: None Lives: with Family CURRENT MEDICATIONS CURRENT MEDICATIONS Current Medications Medications (Trade) Dose Ordered Sig/Neri Route PRN Reason Start Time Stop Time Status Last Admin Dose Admin Aspirin (Aspirin Chewable) 243 mg 1X ONCE PO 01/18/21 18:30 01/18/21 18:31 DC 01/18/21 18:57 Nitroglycerin (Nitrostat) 0.4 mg PRN Q5MIN PRN SL CP RATING > 1/10 01/18/21 18:00 01/19/21 17:59 01/18/21 19:01 Nicotine (Nicoderm Cq 21mg) 1 patch DAILY TD 01/18/21 23:00 01/19/21 08:39 Aspirin (Ecotrin) 81 mg DAILYWBKFT PO 01/19/21 08:00 01/19/21 08:39 Atorvastatin Calcium (Lipitor) 40 mg QHS PO 01/18/21 21:00 01/18/21 21:11 Pantoprazole Sodium (Protonix) 40 mg DAILYAC PO 01/19/21 07:30 01/19/21 08:39 Zolpidem Tartrate (Ambien) 5 mg PRN QHS PRN PO INSOMNIA, MAY REPEAT IN 1HR 01/18/21 20:30 01/18/21 23:04 Acetaminophen/ Hydrocodone Bitart (Lortab 5/325) 2 tab PRN Q4HRS PRN PO MODERATE PAIN, SEVERE PAIN 01/18/21 20:30 01/19/21 08:44 Acetaminophen (Tylenol) 650 mg PRN Q6HRS PRN PO Headaches, Temp > 101.5F 01/18/21 20:30 01/19/21 01:57 Heparin Sodium (Porcine) (Heparin Sodium) 5,000 unit Q8HRS SQ 01/18/21 22:00 01/19/21 06:41 ALLERGIES ALLERGIES: Coded Allergies: No Known Drug Allergies (Unverified , 07/12/13) ROS Review of System 14 point ROS conducted with pertinent positives noted above in HPI PHYSICAL EXAM General: Alert, Oriented X3, Cooperative, No acute distress HEENT: Atraumatic Lungs: Clear to auscultation Heart: Regular rate Abdomen: Soft, No tenderness Extremities: No edema Skin: No significant lesion Neuro: Normal speech, Sensation intact Psych/Mental Status: Mental status NL, Mood NL MUSCULOSKELETAL: Osteoarthritic changes both hands VITALS/I&O VITALS/I&O: Vital Signs Date Time Temp Pulse Resp B/P (MAP) Pulse Ox O2 Delivery O2 Flow Rate FiO2 01/19/21 10:38 97.8 77 18 115/74 (88) 99 Room Air 97.8 I & O 01/18/21 01/18/21 01/19/21 15:00 23:00 07:00 Intake Total 540 ml Output Total 450 ml Balance 90 ml LABS Lab: Laboratory Tests Test 01/18/21 17:48 01/18/21 21:03 01/19/21 00:11 01/19/21 05:02 White Blood Count 11.1 x10^3/uL (4.0-11.0) H 7.8 x10^3/uL (4.0-11.0) Red Blood Count 4.54 x10^6/uL (4.30-5.70) 4.41 x10^6/uL (4.30-5.70) Hemoglobin 14.5 g/dL (13.0-17.5) 14.0 g/dL (13.0-17.5) Hematocrit 42.6 % (39.0-53.0) 41.3 % (39.0-53.0) Mean Corpuscular Volume 94 fL (79-100) 94 fL (79-100) Mean Corpuscular Hemoglobin 32 pg (25-35) 32 pg (25-35) Mean Corpuscular Hemoglobin Concent 34 g/dL (31-37) 34 g/dL (31-37) Red Cell Distribution Width 15.3 % (11.5-14.5) H 15.2 % (11.5-14.5) H Platelet Count 298 x10^3/uL (140-400) 263 x10^3/uL (140-400) Neutrophils (%) (Auto) 75 % (31-73) H Lymphocytes (%) (Auto) 15 % (24-48) L Monocytes (%) (Auto) 6 % (0-9) Eosinophils (%) (Auto) 3 % (0-3) Basophils (%) (Auto) 0 % (0-3) Neutrophils # (Auto) 8.4 x10^3/uL (1.8-7.7) H Lymphocytes # (Auto) 1.7 x10^3/uL (1.0-4.8) Monocytes # (Auto) 0.7 x10^3/uL (0.0-1.1) Eosinophils # (Auto) 0.3 x10^3/uL (0.0-0.7) Basophils # (Auto) 0.0 x10^3/uL (0.0-0.2) Sodium Level 135 mmol/L (136-145) L 135 mmol/L (136-145) L Potassium Level 4.3 mmol/L (3.5-5.1) 3.9 mmol/L (3.5-5.1) Chloride Level 99 mmol/L (98-107) 100 mmol/L (98-107) Carbon Dioxide Level 30 mmol/L (21-32) 25 mmol/L (21-32) Anion Gap 6 (6-14) 10 (6-14) Blood Urea Nitrogen 17 mg/dL (8-26) 15 mg/dL (8-26) Creatinine 1.2 mg/dL (0.7-1.3) 1.1 mg/dL (0.7-1.3) Estimated GFR (Cockcroft-Gault) 64.4 71.1 BUN/Creatinine Ratio 14 (6-20) Glucose Level 116 mg/dL (70-99) H 104 mg/dL (70-99) H Calcium Level 9.0 mg/dL (8.5-10.1) 8.6 mg/dL (8.5-10.1) Magnesium Level 2.2 mg/dL (1.8-2.4) Total Bilirubin 0.5 mg/dL (0.2-1.0) Direct Bilirubin 0.1 mg/dL (0.0-0.2) Aspartate Amino Transferase (AST) 22 U/L (15-37) Alanine Aminotransferase (ALT) 43 U/L (16-63) Alkaline Phosphatase 212 U/L (46-116) H Troponin I Quantitative < 0.017 ng/mL (0.000-0.055) < 0.017 ng/mL (0.000-0.055) < 0.017 ng/mL (0.000-0.055) OZ-Tpv-E-Type Natriuretic Peptide 102 pg/mL (0-124) Total Protein 7.4 g/dL (6.4-8.2) Albumin 3.5 g/dL (3.4-5.0) Albumin/Globulin Ratio 0.9 (1.0-1.7) L Lipase 97 U/L (73-393) Triglycerides Level 66 mg/dL (0-150) Cholesterol Level 189 mg/dL (0-200) LDL Cholesterol, Calculated 125 mg/dL (0-100) H VLDL Cholesterol, Calculated 13 mg/dL (0-40) Non-HDL Cholesterol Calculated 138 mg/dL (0-129) H HDL Cholesterol 51 mg/dL (40-60) Cholesterol/HDL Ratio 3.7 Laboratory Tests 01/18/21 17:48 01/19/21 05:02 Laboratory Tests 01/18/21 17:48 01/19/21 05:02 ECHOCARDIOGRAM ECHOCARDIOGRAM <Conclusion> The left ventricle is normal size. The left ventricular systolic function is normal and the ejection fraction is within normal range. The Ejection Fraction is 55-60%. There is no significant aortic valvular stenosis. Doppler and Color Flow revealed no significant aortic regurgitation. Doppler and Color-flow revealed trace mitral regurgitation. Doppler and Color Flow revealed trace tricuspid regurgitation. The PA pressure was estimated at 24 mmHg. DATE: 09/13/17 1229 HEART CATH HEART CATH FINDINGS 1. Hemodynamics: Left ventricular end-diastolic pressure of 12 mmHg. No pullback gradient across the aortic valve. 2. Left ventriculography: Hyperdynamic left ventricular systolic function with ejection fraction estimated at 75-80%. No significant mitral regurgitation seen. 3. Coronary angiography: a. The left main coronary artery arose from the left sinus of Valsalva, gave rise to the left anterior descending and left circumflex arteries and did not show any significant stenosis. b. The left anterior descending artery did not show any significant stenosis. c. The left circumflex artery did not show any significant stenosis. d. The right coronary artery was a large and dominant vessel arising from the right sinus of Valsalva that did not show any significant stenosis. Conclusion 1. No significant coronary artery disease 2. Hyperdynamic left ventricular systolic function with ejection fraction estimated at 75-80% Recommendations Patient's non-STEMI is most probably type 2/demand ischemia. Recommend medical management. DATE: 09/13/17 1305 ASSESSMENT/PLAN ASSESSMENT/PLAN Chest pain, mixed features; AMI ruled out. EKG with acute changes as compared to study 09/13/17. 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 R/b/a discussed and he is agreeable to proceed. ' ANNE MARIE Caceres APRN Jan 19, 2021 13:26
[2021-01-19 15:00] VITALS: BP 128/84
--- NOTE | 2021-01-19 15:33 | NUR ---
SS following for discharge planning. SS reviewed pt chart and discussed with pt RN. Pt is from home with spouse and is currently on room air. Cardiology following. Possible heart cath tomorrow. Pt requesting information on DPOA and Advanced Directives. SS met with pt and spouse in room and provided information. SS will continue to follow for discharge planning.
--- NOTE | 2021-01-19 16:49 | CARD ---
MR#: [id number] Date of Study: 01/19/2021 Ordering Physician: COREY SARGENT, Referring Physician: COREY SARGENT Tech: Tr Sen [facility] APPROVED REPORT EXAM: LIMITED Two-dimensional and M-mode echocardiogram with Doppler and color Doppler. Other Information Quality : FairHR: 72bpm Rhythm : NSR INDICATION Cardiac Disease: CAD Chest Pain RISK FACTORS Hyperlipidemia Smoking 2D DIMENSIONS IVSd0.8 (0.7-1.1cm)Aortic Root(2D)3.8 (2.0-3.7cm) LVDd4.3 (3.9-5.9cm)PWd0.8 (0.7-1.1cm) LVDs2.4 (2.5-4.0cm)FS (%) 43.6 % SV61.6 ml Tricuspid Valve TR P. [id number] Peak Gr.27mmHg LEFT VENTRICLE The left ventricle is normal size. There is normal left ventricular wall thickness. The left ventricu lar systolic function is normal. The ejection fraction is 50 to 55%. There is normal LV segmental wal l motion. Diastolic function not assessed No left ventricle thrombus noted on this study. There is no ventricular septal defect visualized. There is no left ventricular aneurysm. There is no mass noted in the left ventricle. RIGHT VENTRICLE The right ventricle is normal size. There is normal right ventricular wall thickness. The right ventr icular systolic function is normal. ATRIA The left atrium size is normal. The right atrium size is normal. The interatrial septum is intact wit h no evidence for an atrial septal defect or patent foramen ovale as noted on 2-D or Doppler imaging. AORTIC VALVE Aortic valve not assessed Doppler and Color Flow revealed no significant aortic regurgitation. There is no significant aortic valvular stenosis. MITRAL VALVE The mitral valve is normal in structure and function. Doppler and Color Flow revealed no mitral valve regurgitation noted. TRICUSPID VALVE The tricuspid valve is normal in structure and function. Doppler and Color Flow revealed trace tricus pid regurgitation. PULMONIC VALVE Pulmonic valve not assessed GREAT VESSELS Aortic root size is upper limit of normal. The ascending aorta is normal in size. The IVC is normal i n size and collapses >50% with inspiration. PERICARDIAL EFFUSION There is no pleural effusion. There is no evidence of significant pericardial effusion. Critical Notification Critical Value: No <Conclusion> The left ventricle is normal size. The left ventricular systolic function is normal. The ejection fraction is 50 to 55%. Doppler and Color Flow revealed no significant aortic regurgitation. There is no significant aortic valvular stenosis. Doppler and Color Flow revealed no mitral valve regurgitation noted. Doppler and Color Flow revealed trace tricuspid regurgitation. Signed by : Arsalan Gonzalez MD Electronically Approved : 01/19/2021 16:49:00
--- NOTE | 2021-01-19 19:16 | NUR ---
Patient chatting on phone and eating snacks. Denies chest pain now. Informed patient and his that he is moving to [facility]. Transferring per w/c. Is up in room without assist.
[2021-01-19 20:05] VITALS: BP 158/97
--- NOTE | 2021-01-19 20:27 | NUR ---
Report given to ANGELICA Young on . Patient settled in room 211.
[2021-01-19] MEDS: ATORVASTATIN CALCIUM 40 MG TABLET. PO SCH (20:58)
[2021-01-19 22:40] VITALS: BP 142/98
[2021-01-19] MEDS: ZOLPIDEM 5 MG TABLET. PO PRN (22:57)
[2021-01-20] VITALS (13 sets, daily range): BP systolic 108–138; BP diastolic 71–93
[2021-01-20] MEDS: HEPARIN for SUB-Q USE 5,000 UNIT/ML VIAL. SQ SCH (05:59)
[2021-01-20] MEDS: ASPIRIN ENTERIC COATED 81 MG TABLET.DR. PO SCH (08:00)
[2021-01-20] MEDS ORDERED: LIDOCAINE 1% Multi-Dose 20 ML VIAL. ONE (08:17)
[2021-01-20] MEDS ORDERED: IODIXANOL 320 MG/ML 100 ML VIAL. ONE (08:17)
[2021-01-20] MEDS ORDERED: HEPARIN for ARTERIAL LINE 1,500 ML ONE (08:18)
[2021-01-20] MEDS ORDERED: fentaNYL PF VIAL 100 MCG/2 ML VIAL ONE (08:37)
[2021-01-20] MEDS ORDERED: MIDAZOLAM HCL/PF 5 MG/5 ML VIAL. ONE (08:37)
[2021-01-20] MEDS ORDERED: fentaNYL PF VIAL 100 MCG/2 ML VIAL IV ONE (09:30)
[2021-01-20] MEDS ORDERED: MIDAZOLAM HCL/PF 5 MG/5 ML VIAL. IV ONE (09:30)
[2021-01-20] MEDS ORDERED: IODIXANOL 320 MG/ML 100 ML VIAL. IART ONE (09:30)
[2021-01-20] MEDS ORDERED: LIDOCAINE 1% Multi-Dose 20 ML VIAL. INJ ONE (09:30)
--- NOTE | 2021-01-20 09:34 | PDOC ---
MODERATE SEDATION ASSESSMENT RISKS/ALTERNATIVES Risks/Alternatives Risks and alternatives of this type of sedation and procedure discussed with: RISK/ALTERNATIVES: Patient H & P ON CHART H & P H & P on chart and reviewed for co-morbid conditions and appropriate labs. H&P ON CHART: Yes STATUS PREG STATUS ASSESSED: N/A MEDS/ALLERGIES REVIEWED Meds/Allergies Reviewed Medications and Allergies including time and route of recently administered narcotics and sedatives. MEDS/ALLERGIES REVIEWED: Yes ASA RATING ASA RATING: II AIRWAY ASSESSMENT Airway Assessment Airway patency, oral function limitations, presence of caps, crowns, dentures, partials, and ability to extend neck assessed. AIRWAY ASSESSMENT: Yes MALLAMPATI SCORE MALLAMPATI SCORE: II PRE-SEDATION ASSESSMENT PRE-SEDATION ASSESSMENT: Yes EUGENIA STRINGER MD Jan 20, 2021 09:34
[2021-01-20] MEDS ORDERED: NITROGLYCERIN SUBLINGUAL 0.4 MG BOTTLE OF 25. SL PRN (10:30)
[2021-01-20] MEDS ORDERED: IV NORMAL SALINE 1000ML BAG 1,000 ML IV SCH (10:30)
[2021-01-20] MEDS ORDERED: 0.9 % SODIUM CHLORIDE 10 ML DISP.SYRIN. IV PRN (10:30)
[2021-01-20] MEDS ORDERED: METOPROLOL SUCC 24HR ER 25 MG TAB.ER.24H. PO SCH (10:30)
--- NOTE | 2021-01-20 11:23 | PDOC ---
[facility] [facility] PROGRESS NOTE Date of Service DOS: DATE: 01/20/21 TIME: 11:20 Chief Complaint Chief Complaint Chest pain HLD GERD Chronic back pain Plan: Initial troponin <0.017; will continue to trend and place consultation to cardiology Morphine, nitroglycerin as needed No specific ST changes noted on EKG Lipid panel pending Had [facility] (09/13/17) that showed no significant coronary artery disease, hyperdynamic left ventricular systolic function with ejection fraction estimated at 75-80%; recommended medical management. Echocardiogram pending Resume home medications FEN - Cardiac diet PPX - Heparin FULL CODE Dispo - inpatient for above Advance Care Planning: Total time spent [id number] with patient 16 minutes in discussion with goals of care, comfort care, end-of-life care, pain management, code status; patient names his (Jaquelin Velazquez) as surrogate decision-maker. History of Present Illness History of Present Illness Patient 50-year-old male with past medical history COPD, HLD, GERD, chronic back pain, who presents to the ED with complaints of left-sided chest pain since last night. He reports sharp chest pain, 8/10. He did not try any medications for symptoms prior to coming to the ED for further evaluation. Upon arrival in the ED EKG showed no evidence of acute ischemic changes and chest x-ray showed no acute process. Labs on admission showed WBC 11.1, CBG 116, troponin <0.017. He states his symptoms improve with nitroglycerin, at time of my evaluation rates his pain 1/10. States his current pain is not similar to his history of GERD. Will admit patient for further medical management. 01/19/2021: Afebrile. Troponins <0.017x3. Denies any worsening of chest pain. Echocardiogram pending. Had discussion with Dr. Vu, given significant risk factors, presenting symptom, and significantly family history, family and patient are agreeable to left heart cath tomorrow. 01/20/2021: Patient seen post-cardiac catheterization. Denies any significant symptoms right now, just states he feels drowsy. Discussed with cardiology, patient's cath showed minimal plaque and no stents were placed. Recommended beta-rosi and as needed nitroglycerin. He is stable for discharge today. Greater than 30 minutes spent managing discharge this patient. Vitals/I&O Vitals/I&O: Vital Signs Date Time Temp Pulse Resp B/P (MAP) Pulse Ox O2 Delivery O2 Flow Rate FiO2 01/20/21 10:10 16 100 Nasal Cannula 2.0 01/20/21 10:03 80 01/20/21 07:00 98.4 138/89 (105) 98.4 I & O 01/19/21 01/19/21 01/20/21 15:00 23:00 07:00 Intake Total 960 ml 480 ml 360 ml Output Total 400 ml Balance 560 ml 480 ml 360 ml Physical Exam General: Alert, Oriented X3, Cooperative, No acute distress Heart: Regular rate Lungs: Clear Abdomen: Soft, No tenderness Extremities: No edema Skin: No significant lesion Labs Labs: Laboratory Tests Test 01/19/21 16:14 SARS-CoV-2 Antigen (Rapid) Negative (NEGATIVE) Assessment and Plan Assessmemt and Plan Problems Medical Problems: (1) Unstable angina Status: Acute Comment Review of Relevant I have reviewed the following items myrna (where applicable) has been applied. Medications: Current Medications Medications (Trade) Dose Ordered Sig/Neri Route PRN Reason Start Time Stop Time Status Last Admin Dose Admin Heparin Sodium/ Sodium Chloride (HEPARIN for ARTERIAL LINE FLUSH) 1,000 unit 1X ONCE IART 01/20/21 09:30 01/20/21 09:34 DC 01/20/21 10:08 Heparin Sodium/ Sodium Chloride (HEPARIN for ARTERIAL LINE FLUSH) 1,000 unit 1X ONCE IART 01/20/21 09:30 01/20/21 09:34 DC 01/20/21 10:08 Midazolam HCl (Versed) 5 mg 1X ONCE IV 01/20/21 09:30 01/20/21 09:34 DC 01/20/21 10:11 Fentanyl Citrate (Fentanyl 2ml Vial) 100 mcg 1X ONCE IV 01/20/21 09:30 01/20/21 09:34 DC 01/20/21 10:10 Iodixanol (Visipaque 320) 100 ml 1X ONCE IART 01/20/21 09:30 01/20/21 09:34 DC 01/20/21 10:09 Lidocaine HCl (Lidocaine 1% 20ml Vial) 20 ml 1X ONCE INJ 01/20/21 09:30 01/20/21 09:34 DC 01/20/21 10:09 Justifications for Admission Other Justification COREY SARGENT MD Jan 20, 2021 11:23
--- NOTE | 2021-01-20 11:25 | PDOC3 ---
Discharge Summary Visit Information Date of Admission: Jan 18, 2021 Date of Discharge: Jan 20, 2021 Final Diagnosis Problems Medical Problems: (1) Unstable angina Status: Acute Brief Hospital Course Allergies Allergies Coded Allergies Type Severity Reaction Last Updated Verified No Known Drug Allergies 07/12/13 No Vital Signs Vital Signs Date Time Temp Pulse Resp B/P (MAP) Pulse Ox O2 Delivery O2 Flow Rate FiO2 01/20/21 10:10 16 100 Nasal Cannula 2.0 01/20/21 10:03 80 01/20/21 07:00 98.4 138/89 (105) 98.4 Lab Results Laboratory Tests Test 01/18/21 17:48 01/18/21 21:03 01/19/21 00:11 01/19/21 05:02 White Blood Count 11.1 x10^3/uL (4.0-11.0) 7.8 x10^3/uL (4.0-11.0) Red Blood Count 4.54 x10^6/uL (4.30-5.70) 4.41 x10^6/uL (4.30-5.70) Hemoglobin 14.5 g/dL (13.0-17.5) 14.0 g/dL (13.0-17.5) Hematocrit 42.6 % (39.0-53.0) 41.3 % (39.0-53.0) Mean Corpuscular Volume 94 fL (79-100) 94 fL (79-100) Mean Corpuscular Hemoglobin 32 pg (25-35) 32 pg (25-35) Mean Corpuscular Hemoglobin Concent 34 g/dL (31-37) 34 g/dL (31-37) Red Cell Distribution Width 15.3 % (11.5-14.5) 15.2 % (11.5-14.5) Platelet Count 298 x10^3/uL (140-400) 263 x10^3/uL (140-400) Neutrophils (%) (Auto) 75 % (31-73) Lymphocytes (%) (Auto) 15 % (24-48) Monocytes (%) (Auto) 6 % (0-9) Eosinophils (%) (Auto) 3 % (0-3) Basophils (%) (Auto) 0 % (0-3) Neutrophils # (Auto) 8.4 x10^3/uL (1.8-7.7) Lymphocytes # (Auto) 1.7 x10^3/uL (1.0-4.8) Monocytes # (Auto) 0.7 x10^3/uL (0.0-1.1) Eosinophils # (Auto) 0.3 x10^3/uL (0.0-0.7) Basophils # (Auto) 0.0 x10^3/uL (0.0-0.2) Sodium Level 135 mmol/L (136-145) 135 mmol/L (136-145) Potassium Level 4.3 mmol/L (3.5-5.1) 3.9 mmol/L (3.5-5.1) Chloride Level 99 mmol/L (98-107) 100 mmol/L (98-107) Carbon Dioxide Level 30 mmol/L (21-32) 25 mmol/L (21-32) Anion Gap 6 (6-14) 10 (6-14) Blood Urea Nitrogen 17 mg/dL (8-26) 15 mg/dL (8-26) Creatinine 1.2 mg/dL (0.7-1.3) 1.1 mg/dL (0.7-1.3) Estimated GFR (Cockcroft-Gault) 64.4 71.1 BUN/Creatinine Ratio 14 (6-20) Glucose Level 116 mg/dL (70-99) 104 mg/dL (70-99) Calcium Level 9.0 mg/dL (8.5-10.1) 8.6 mg/dL (8.5-10.1) Magnesium Level 2.2 mg/dL (1.8-2.4) Total Bilirubin 0.5 mg/dL (0.2-1.0) Direct Bilirubin 0.1 mg/dL (0.0-0.2) Aspartate Amino Transf (AST/SGOT) 22 U/L (15-37) Alanine Aminotransferase (ALT/SGPT) 43 U/L (16-63) Alkaline Phosphatase 212 U/L (46-116) Troponin I Quantitative < 0.017 ng/mL (0.000-0.055) < 0.017 ng/mL (0.000-0.055) < 0.017 ng/mL (0.000-0.055) AL-Hor-F-Type Natriuretic Peptide 102 pg/mL (0-124) Total Protein 7.4 g/dL (6.4-8.2) Albumin 3.5 g/dL (3.4-5.0) Albumin/Globulin Ratio 0.9 (1.0-1.7) Lipase 97 U/L (73-393) Triglycerides Level 66 mg/dL (0-150) Cholesterol Level 189 mg/dL (0-200) LDL Cholesterol, Calculated 125 mg/dL (0-100) VLDL Cholesterol, Calculated 13 mg/dL (0-40) Non-HDL Cholesterol Calculated 138 mg/dL (0-129) HDL Cholesterol 51 mg/dL (40-60) Cholesterol/HDL Ratio 3.7 Test 01/19/21 16:14 SARS-CoV-2 Antigen (Rapid) Negative (NEGATIVE) Laboratory Tests Test 01/19/21 16:14 SARS-CoV-2 Antigen (Rapid) Negative (NEGATIVE) Brief Hospital Course Patient 50-year-old male with past medical history COPD, HLD, GERD, chronic back pain, who presents to the ED with complaints of left-sided chest pain since last night. He reports sharp chest pain, 8/10. He did not try any medications for symptoms prior to coming to the ED for further evaluation. Upon arrival in the ED EKG showed no evidence of acute ischemic changes and chest x-ray showed no acute process. Labs on admission showed WBC 11.1, CBG 116, troponin <0.017. He states his symptoms improve with nitroglycerin, at time of my evaluation rates his pain 1/10. States his current pain is not similar to his history of GERD. Will admit patient for further medical management. 01/19/2021: Afebrile. Troponins <0.017x3. Denies any worsening of chest pain. Echocardiogram pending. Had discussion with Dr. Vu, given significant risk factors, presenting symptom, and significantly family history, family and patient are agreeable to left heart cath tomorrow. 01/20/2021: Patient seen post-cardiac catheterization. Denies any significant symptoms right now, just states he feels drowsy. Discussed with cardiology, patient's cath showed minimal plaque and no stents were placed. Recommended beta-rosi and as needed nitroglycerin. He is stable for discharge today. Greater than 30 minutes spent managing discharge this patient. Discharge Information Condition at Discharge: Improved Disposition/Orders: D/C to Home Scheduled Aspirin (Aspirin Ec) 81 Mg Tablet., 81 MG PO [id number] for 30 Days, #30 Ref 5 Prescribed by: SHAMEKA QUIJANO MD on 09/13/171342 Last Taken: Unknown Dose on 01/18/21 09 Last Action: Last Taken Edited on 01/18/212225 by LIAM ELDER Atorvastatin Calcium (Atorvastatin Calcium) 40 Mg Tablet, 40 MG PO QHS for 30 Days, #30 Ref 5 Prescribed by: SHAMEKA QUIJANO MD on 09/13/171342 Last Taken: Unknown Dose on 01/18/21899 Last Action: Last Taken Edited on 01/18/212225 by LIAM ELDER Omeprazole (Omeprazole) 20 Mg Capsule., 1 CAP PO DAILY for GERD, #30 Ref 5 (Reported) Entered as Reported by: RUSTY STEELE on 11/12/201407 Last Taken: Unknown Dose on 01/18/21899 Last Action: Last Taken Edited on 01/18/212225 by LIAM ELDER Scheduled PRN Cyclobenzaprine Hcl (Cyclobenzaprine Hcl) 10 Mg Tablet, 1 TAB PO TID PRN for MUSCLE SPASMS, #90 (Reported) Entered as Reported by: RUSTY STEELE on 11/12/201407 Last Taken: Unknown Dose on Unknown Date & Time Last Action: Last Taken Edited on 01/18/212225 by LIAM ELDER Naproxen (Naproxen) 500 Mg Tablet, 1 TAB PO BID PRN for PAIN for 30 Days, #60 Ref 0 (Reported) Entered as Reported by: RUSTY STEELE on 11/12/201407 Last Taken: Unknown Dose on Unknown Date & Time Last Action: Last Taken Edited on 01/18/212225 by LIAM ELDER Justicifation of Admission Dx: Justifications for Admission: Justification of Admission Dx: Yes COREY SARGENT MD Jan 20, 2021 11:25
[2021-01-20] MEDS ORDERED: METO-239 PO (11:34)
[2021-01-20] MEDS ORDERED: ISOS30TA68 PO (11:34)
[2021-01-20] MEDS: NICOTINE 21MG PATCH. TD SCH (11:35)
[2021-01-20] MEDS: PANTOPRAZOLE 40 MG TABLET.DR. PO SCH (11:35)
--- NOTE | 2021-01-20 13:21 | NUR ---
SS following up with discharge planning. SS reviewed pt chart and discussed with pt RN. Pt is currently on room air. COVID19 negative. Discharge order on the chart for home with self care.
--- NOTE | 2021-01-20 17:00 | NUR ---
Discharge Note: JAMES HUNTER Discharge instructions and discharge home medications reviewed with Patient and a copy given. All questions have been answered and understanding verbalized. Right groin site soft and clean. Dressing removed at discharge. The following instructions and handouts were given: Groin site care, Cardiac Catheterization discharge instructions, and chest pain Discontinued lines and drains: Peripheral IV intact. Patient discharged to Home or Self Care with Spouse via Wheelchair
[2021-01-21] MEDS ORDERED: ASPIRIN ENTERIC COATED 81 MG TABLET.DR. PO SCH (08:00)
== END 2021-01-20 17:00 | disposition home or self-care (01) ==
LOC: ER 17:35 → INTOOBSV 20:00 → 1 WEST ICU 20:00 → 2 NORTH 01-19 20:00
PROVIDERS: ADMIT Family Medicine; ATTEND Family Medicine
DX: I20.0 Unstable angina (principal); J44.9 Chronic obstructive pulmonary disease, unspecified; Z20.822 Contact with and (suspected) exposure to COVID-19; K21.9 Gastro-esophageal reflux disease without esophagitis; I25.2 Old myocardial infarction; I10 Essential (primary) hypertension; E78.5 Hyperlipidemia, unspecified; F17.210 Nicotine dependence, cigarettes, uncomplicated; G89.29 Other chronic pain; M54.9 Dorsalgia, unspecified; G43.909 Migraine, unspecified, not intractable, without status migrainosus; M19.90 Unspecified osteoarthritis, unspecified site; Z82.49 Family history of ischemic heart disease and other diseases of the circulatory system; Z79.82 Long term (current) use of aspirin
CPT/HCPCS: 36415; 71045; 80048; 80053; 80061; 80076; 83690; 83735; 83880; 84484; 85025; 85027; 87426; 93005; 93308; 93458; 96372; 96374; 96375; 99152; 99153; 99285; C1760; C1769; C1894; G0269; G0378; J1644; J2250; J3010; J3490; Q9967; G0379

== ENCOUNTER → 2021-06-09 | Outpatient (CLI) | payer OTHER ==
[2021-01-20 15:00] VITALS: BP 123/73
[~2021-06-09] MED LIST changes: +BUPIVACAINE MPF 0.5% 10 ML VIAL. IJ ONE; +CONTRAST GIVEN. MC PRN; +CYCL10TA19 PO; -CYCL10TA2 PO; +IOHEXOL 300 MG/ML 50 ML VIAL. INT ART ONE; +ISOS30TA68 PO; +LIDOCAINE 1% Multi-Dose 20 ML VIAL. INJ ONE; +METO-239 PO; +TRIAMCINOLONE ACETONIDE 40 MG/ML VIAL. INT ART ONE
--- NOTE | 2021-06-10 11:13 | RAD ---
EXAM: Fluoroscopically guided left hip joint injection of steroid and anesthetic INDICATION: Avascular necrosis COMPARISON: Left hip radiograph 06/02/2021 TECHNIQUE/FINDINGS: The purpose of the procedure and risks including infection, bleeding, contrast reaction, and pain wer e discussed with the patient. Informed consent was obtained. A timeout was performed. After obtaining consent, the patient was placed supine on the fluoroscopy table with the left hip int ernally rotated. The skin overlying the left hip was marked, sterilized and draped. Superficial and deep soft tissues were anesthetized with 1% lidocaine. Utilizing fluoroscopic guidance, a 22-gauge 1.5 inch needle was advanced into the joint. Intraarticular position was confirmed with injection of a small amount of iodinated contrast. Subsequently, 5 mL of a solution containing the following item s was instilled into the joint: 1 mm Kenalog (40 mg/mL), 2 mL 0.5 percent bupivacaine, and 2 mL 1 per cent lidocaine. At the end of the procedure, the needle was removed. The overlying skin was cleansed and covered with a bandaid. The patient tolerated the procedure well and was free of immediate compl ications. Total fluoroscopic time: 0.5 minute. 2 mm IMPRESSION: Technically successful left hip injection of steroid and anesthetic. Electronically signed by: Portia Vera MD (06/10/2021 11:11 AM) [id number]
== END | disposition home or self-care (01) ==
LOC: RAD 13:54
PROVIDERS: ATTEND Orthopaedic Surgery
DX: M87.88 Other osteonecrosis, other site (principal); E78.00 Pure hypercholesterolemia, unspecified; J44.9 Chronic obstructive pulmonary disease, unspecified; K21.9 Gastro-esophageal reflux disease without esophagitis; M19.90 Unspecified osteoarthritis, unspecified site; G47.30 Sleep apnea, unspecified; F17.210 Nicotine dependence, cigarettes, uncomplicated; Z86.73 Personal history of transient ischemic attack (TIA), and cerebral infarction without residual deficits; Z79.82 Long term (current) use of aspirin; Z79.899 Other long term (current) drug therapy; Z98.890 Other specified postprocedural states
CPT/HCPCS: 20610; 77002; J3301; J3490; Q9967

== ENCOUNTER → 2021-07-26 | Outpatient (CLI) | payer OTHER ==
[2021-01-20 15:00] VITALS: BP 123/73
[~2021-07-26] MED LIST changes: -BUPIVACAINE MPF 0.5% 10 ML VIAL. IJ ONE; -CONTRAST GIVEN. MC PRN; -IOHEXOL 300 MG/ML 50 ML VIAL. INT ART ONE; -LIDOCAINE 1% Multi-Dose 20 ML VIAL. INJ ONE; -TRIAMCINOLONE ACETONIDE 40 MG/ML VIAL. INT ART ONE
[2021-07-26 09:40] LABS: BASO # 0.1 x10^3/uL (0.0-0.2); BASO % 1 % (0-3); EOS # 0.5 x10^3/uL (0.0-0.7); EOS % 6 % (0-3); HEMATOCRIT 41.4 % (39.0-53.0); HEMOGLOBIN 13.6 g/dL (13.0-17.5); LYMPH # 1.7 x10^3/uL (1.0-4.8); LYMPH % 22 % (24-48); MEAN CORPUSCULAR HEMOGLOBIN 31 pg (25-35); MEAN CORPUSCULAR HGB CONC 33 g/dL (31-37); MEAN CORPUSCULAR VOLUME 93 fL (79-100); MONO # 0.6 x10^3/uL (0.0-1.1); MONO % 8 % (0-9); NEUT # 4.9 x10^3/uL (1.8-7.7); NEUT % 63 % (31-73); PLATELET COUNT 389 x10^3/uL (140-400); RED BLOOD COUNT 4.46 x10^6/uL (4.30-5.70); RED CELL DISTRIBUTION WIDTH 14.5 % (11.5-14.5); WHITE BLOOD COUNT 7.8 x10^3/uL (4.0-11.0)
[2021-07-26 09:45] LABS: PROTHROMBIN TIME PATIENT 12.5 SEC (11.7-14.0)
[2021-07-26 09:50] LABS: CALCIUM 8.5 mg/dL (8.5-10.1); GFR 79.1
--- NOTE | 2021-07-26 11:59 | EKG ---
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
--- NOTE | 2021-07-26 13:13 | RAD ---
AP and Lateral Views of the Chest 07/26/2021 12:33 PM Indication: Reason: joint prehab class-hx hypertension-preop eval Comparison: None Findings: There is no focal consolidation or infiltrate identified. The cardiomediastinal silhouette is within normal limits. There is no evidence of pneumothorax or pleural effusion. No acute osseous a bnormalities are identified. Impression: No evidence of acute cardiopulmonary process. Electronically signed by: Bentley Fagan MD (07/26/2021 1:11 PM) [id number]
[2021-07-27 03:09] LABS: HEMOGLOBIN A1C 5.9 % (4.8-5.6)
== END ==
LOC: SURGPAT 12:25
PROVIDERS: ATTEND Orthopaedic Surgery
DX: Z01.818 Encounter for other preprocedural examination (principal); M16.12 Unilateral primary osteoarthritis, left hip
CPT/HCPCS: 36415; 71046; 80048; 82040; 82306; 83036; 85025; 85610; 85651; 85730; 87641; 93005

== ENCOUNTER 2021-08-23 08:38 | Observation (INO) | payer OTHER ==
[2021-07-30 17:52] VITALS: BP 149/88
[2021-08-23] VITALS (7 sets, daily range): BP systolic 108–120; BP diastolic 66–76
[~2021-08-23] VITALS: Ht 172.7 cm; Wt 80.0 kg
[~2021-08-23 08:38] MED LIST changes: +ACETAMINOPHEN 500 MG TABLET PO PRN; +ASPIRIN 325 MG TABLET PO SCH; +ATOR80TA72 PO; +DEXAMETHASONE SOD PHOS 4 MG/ML VIAL ONE; +ERGO500089 PO; +FEXO-212 PO; -FEXO180T16 PO; +GABAPENTIN 300 MG CAPSULE. PO PRN; +GLYCOPYRROLATE 1 MG/5 ML VIAL. ONE; +HYDR-2761 PO; +HYDROmorphone 2 MG/ML INJ. IVP PRN; +IV RINGERS,LACTATED 1000ML 1,000 ML IV SCH; +LIDOCAINE 1% PF 5 ML VIAL. ONE; +LORA0.5T96 PO; +MELO15TA6 PO; +MELOXICAM 7.5 MG TABLET PO PRN; +ONDANSETRON PF 4 MG/2 ML VIAL. ONE; +PROCHLORPERAZINE 10 MG/2 ML VIAL. IVP PRN; +PROPOFOL 10 MG/ML (20ML) VIAL. IV ONE; +ROCURONIUM 50 MG/5 ML VIAL. ONE; +TRANEXAMIC ACID 1,000 MG in IV NS 50ML -- 2ND BAG INJ ONE; +fentaNYL PF VIAL 100 MCG/2 ML VIAL IVP PRN; +fentaNYL PF VIAL 100 MCG/2 ML VIAL ONE
[2021-08-23] MEDS ORDERED: LORA0.5T96 PO (08:51)
[2021-08-23] MEDS ORDERED: MELO15TA6 PO (08:51)
[2021-08-23] MEDS ORDERED: LORA10TA3 PO (09:13)
--- NOTE | 2021-08-23 09:58 | HP ---
DATE OF SERVICE: 08/23/2021 ADMIT DATE: 08/23/2021 PREOPERATIVE DIAGNOSIS: Significant left hip pain. BRIEF HISTORY: The patient has significant degenerative joint disease of his left hip and underwent a considerable conservative therapies including physical therapy, intra-articular injections, modifying his activities, etc., but at this point, he has continued in significant left hip pain causing him significant problems at night with pain as well as daytime activities and now ADLs are difficult. No other significant complaints. PAST MEDICAL HISTORY: Remarkable for cervical degenerative joint disease, hypertension, gastroesophageal reflux and hyperlipidemia. SURGICAL HISTORY: None. MAJOR HOSPITALIZATIONS: GA and blood clot formation on 09/13/17. FAMILY HISTORY: Heart disease, Crohn's disease and asthma. Also, some family history of diabetes. SOCIAL HISTORY: The patient is a current smoker. He also will occasionally use alcohol. MEDICATIONS: Omeprazole; ProAir inhaler; atorvastatin; isosorbide mononitrate; aspirin daily of 81 mg; lorazepam daily; Mobic p.r.n. MEDICATION ALLERGIES: NONE. PHYSICAL EXAMINATION: GENERAL: He is alert and oriented x 3. HEENT: Within normal limits. HEART: Regular rate and rhythm with no abnormalities noted. LUNGS: Clear to auscultation in all rodas. ABDOMEN: Soft and nontender. His hip has significant pain with range of motion at this point. He has pain with flexion, pain with extension. Internal rotation is approximately 10-15 where external rotation is about 40 at the most, but significantly painful. Abduction is at 40 as well. No atrophy of musculature, left versus right. Distal neurovascular status is fully intact. IMPRESSION: Avascular necrosis with early degenerative joint disease, left hip. PLAN: At this time, I have talked with him about the diagnosis and the treatment plan and obviously a left total hip arthroplasty would be warranted today since he has already been medically cleared. He will see Anesthesia today. He already is understanding of the risks, complications as well as benefits and expectations of surgery, postoperative protocol and followup. HARRISON/GALI FAROOQ: Markus TID: [id number]
[2021-08-23] MEDS ORDERED: TRANEXAMIC ACID in NS IVPB 100 ML ONE (10:08)
[2021-08-23] MEDS: TV=62ml MORPHINE 5 MG, KETOROLAC 30 MG, ROPIV, EPI INT ART ONE ×2 (11:13→12:10)
[2021-08-23] MEDS: TRANEXAMIC ACID 1,000 MG in IV NS 50ML -- 1ST BAG INJ ONE ×2 (11:13→12:10)
[2021-08-23] MEDS ORDERED: ZOLPIDEM 5 MG TABLET. PO PRN (11:30)
[2021-08-23] MEDS ORDERED: MORPHINE SULFATE 2 MG/ML INJ. IVP PRN (11:30)
[2021-08-23] MEDS ORDERED: fentaNYL PF VIAL 100 MCG/2 ML VIAL IVP PRN (11:30)
[2021-08-23] MEDS ORDERED: METOCLOPRAMIDE HCL 10 MG/2 ML VIAL. IVP PRN (11:30)
[2021-08-23] MEDS ORDERED: IV DEXTROSE 5% 250 ML BAG. IV PRN (11:30)
[2021-08-23] MEDS ORDERED: PROCHLORPERAZINE 5 MG TABLET. PO PRN (11:30)
[2021-08-23] MEDS ORDERED: DEXTROSE 50% 25 GM / 50ML DISP.SYRIN. IV PRN (11:30)
[2021-08-23] MEDS ORDERED: SUGAMMADEX SODIUM 200 MG/2 ML VIAL. IVP ONE (11:30)
[2021-08-23] MEDS: IV NORMAL SALINE 1000ML BAG 1,000 ML IV SCH (11:30)
[2021-08-23] MEDS ORDERED: diphenhydrAMINE 50 MG/ML VIAL IVP PRN (11:30)
[2021-08-23] MEDS ORDERED: 0.9 % SODIUM CHLORIDE 10 ML DISP.SYRIN. IV PRN (11:30)
[2021-08-23] MEDS ORDERED: CALCIUM CARBONATE 500 MG TAB.CHEW PO PRN (11:30)
[2021-08-23] MEDS ORDERED: ePHEDrine PF IN SALINE 50 MG/10 ML SYRINGE. IV ONE (11:43)
[2021-08-23] MEDS ORDERED: GLYCOPYRROLATE 1 MG/5 ML VIAL. ONE (11:52)
[2021-08-23] MEDS: ONDANSETRON PF 4 MG/2 ML VIAL. IVP SCH ×2 (12:00→17:45)
[2021-08-23] MEDS: SENNOSIDES/DOCUSATE 8.6/50MG TABLET. PO SCH (12:00)
[2021-08-23] MEDS: ONDANSETRON ODT 4 MG TAB.RAPDIS. PO SCH ×2 (12:00→18:00)
[2021-08-23] MEDS ORDERED: HYDROmorphone 2 MG/ML INJ. ONE (12:22)
--- NOTE | 2021-08-23 12:50 | PDOC4 ---
OPERATIVE NOTE Date: Date: Aug 23, 2021 Pre-Op Diagnosis: Avascular necrosis with degenerative joint disease left hip Post-Op Diagnosis: Same Procedure Performed: Left total hip arthroplasty Surgeon: Hunter Anesthesia Type: General Blood Loss: 100 cc Specimans Obtained: Femoral head left hip Findings: See dictation Size 4 femur +0 femoral head with a 52 mm acetabular shell elevated liner Complications: None LEONEL MEJIA Jr. DO Aug 23, 2021 12:50
[2021-08-23] MEDS ORDERED: fentaNYL PF VIAL 100 MCG/2 ML VIAL ONE (13:39)
--- NOTE | 2021-08-23 13:43 | RAD ---
EXAM: Pelvis, single view. HISTORY: Arthroplasty. COMPARISON: 06/02/2021 FINDINGS: A frontal view of the pelvis is obtained. There is a left hip arthroplasty in expected posi tion. There is avascular necrosis involving the right superior femoral head. There is degenerative ch elisa at the lower lumbar levels. IMPRESSION: 1. Left hip arthroplasty in expected vision. 2. Right femoral head avascular necrosis. Electronically signed by: Destiny Reed MD (08/23/2021 1:40 PM) [id number]
[2021-08-23] MEDS: fentaNYL PF VIAL 100 MCG/2 ML VIAL IVP PRN ×2 (13:51→13:58)
--- NOTE | 2021-08-23 14:04 | OP ---
DATE OF SURGERY: 08/23/2021 PREOPERATIVE DIAGNOSIS: Avascular necrosis with degenerative joint disease, left hip. POSTOPERATIVE DIAGNOSIS: Avascular necrosis with degenerative joint disease, left hip. PROCEDURE: Left total hip arthroplasty. SURGEON: Jacques Harrison Jr, DO SUPERVISOR WIRE ROPE FABRICATION: [place] Petit. ANESTHESIA: General. COMPLICATIONS: None. ESTIMATED BLOOD LOSS: 100 mL COMPONENTS: A 52 outer shell acetabulum with a 38 femoral head, +0. A size 4 femur, 132-degree neck angle with an elevated liner. DESCRIPTION OF PROCEDURE: The patient was taken to the operative suite, given a general anesthetic, placed with the affected hip upright. The left hip was then prepped and draped in a sterile fashion. A standard anterolateral approach to the hip was undertaken with incision through skin and subcutaneous tissues down to the iliotibial band. This was split in line with the skin incision. This was retracted anteriorly and posteriorly. The portion of the inferior aspect of the gluteus medius was removed along with the gluteus minimus to establish the capsule of the hip, which was identified. This was opened up in an H fashion and the hip was subsequently dislocated. One fingerbreadth above the lesser trochanter using the appropriate guides and positioning, the cut was made in the femur. This was noted to be a good flush cut and then the femoral head was noted to have significant changes secondary to this avascular necrosis. This was then thoroughly irrigated in the acetabulum. Nothing had any loose pieces in that area. The remainder of the labral tissue was removed in its entirety and then reaming began at size 46 and continued at 2 mm increments until we got to 50 and then reamed at 51 mm and then subsequently to 52 mm, which was noted to be very good positioning and size; therefore, this was thoroughly irrigated. There was good bleeding bone. Therefore, the acetabular shell was then impacted into the acetabulum, noted to be in good position and orientation and the trial poly was placed. The attention was then directed to the hip. This was opened up with a box stamper followed by the IM guide followed by broaching at size 0 continued up to size 4. This was then relocated, taken through a range of motion with the trial component. This was noted to be very stable, good pistoning and good position even in extremes of motion. It was manually dislocated. All trial components were removed, the actual polyethylene was impacted into the acetabular component, noted to be secured and stable and then the femoral component was then impacted as well. The ceramic head was then placed into position with slight impaction. This was noted to be secured on the femoral stem; however, this was then subsequently forcibly relocated and then taken through extremes in range of motion and noted to be stable throughout all ranges of motion. Therefore, this was thoroughly irrigated again and then the iodine solution was placed within this area allowed to set and then copiously irrigated. The capsule was then reapproximated using #1 Ethibond. The gluteus medius and minimus attachments were reattached as well. This was done in an interrupted fashion. The iliotibial band was reapproximated initially with #1 Ethibond as well just one suture and then the remainder was run with a Stratafix. This was noted to be stable and secured. Superficial tissue and skin was reapproximated. Sterile dressing was applied. The patient was then taken from the operative bed to the postoperative bed, taken to the PACU in stable condition. WEI DR: Markus TID: [id number]
[2021-08-23] MEDS ORDERED: MORPHINE SULFATE 2 MG/ML INJ. ONE (14:25)
[2021-08-23] MEDS: MORPHINE SULFATE 2 MG/ML INJ. IVP PRN ×2 (14:26→14:44)
[2021-08-23] MEDS ORDERED: ASPI325T11 PO (15:11)
--- NOTE | 2021-08-23 15:30 | NUR ---
received from recovery. he is alert and oriented x3. o2 on at 2lnc. he has good motion, sensation and pulses bilateral lower extremities. at bedside. denies need for pain medication at this time. abductor pillow is in place dressing is clean dry and intact
[2021-08-23] MEDS: NICOTINE 21MG PATCH. TD SCH (15:55)
[2021-08-23] MEDS: oxyCODONE IR 5 MG TABLET PO PRN ×2 (17:43→21:50)
[2021-08-23] MEDS: FERROUS SULFATE 325 MG TABLET. PO SCH (17:44)
[2021-08-23] MEDS ORDERED: KETOROLAC 30MG VIAL 30 MG, BUPIVACAINE MPF 0.25% 20 ML, EPINEPHrine 0.5 MG in TOTAL VOL... INT ART SCH (18:00)
[2021-08-23] MEDS ORDERED: ALBUTEROL SULFATE 2.5 MG/3 ML NEBU. INH PRN (19:00)
[2021-08-23] MEDS: ATORVASTATIN CALCIUM 40 MG TABLET. PO SCH (21:00)
[2021-08-23] MEDS: ASPIRIN 325 MG TABLET PO SCH (21:00)
[2021-08-23] MEDS: ASPIRIN ENTERIC COATED 325 MG TABLET.DR. PO SCH (21:49)
[2021-08-24] MEDS: oxyCODONE IR 5 MG TABLET PO PRN ×3 (02:57→21:17)
[2021-08-24 03:00] VITALS: BP 123/73
[2021-08-24] MEDS: ONDANSETRON ODT 4 MG TAB.RAPDIS. PO SCH ×2 (05:43)
[2021-08-24] MEDS: ONDANSETRON PF 4 MG/2 ML VIAL. IVP SCH ×2 (05:43)
[2021-08-24] MEDS ORDERED: MAGNESIUM HYDROXIDE 2,400 MG/30 ML ORAL.SUSP. PO PRN (06:00)
[2021-08-24] MEDS: GABAPENTIN 100 MG CAPSULE. PO SCH ×3 (06:44→21:54)
[2021-08-24 06:49] VITALS: BP 109/63
[2021-08-24] MEDS: ASPIRIN 325 MG TABLET PO SCH (07:14)
[2021-08-24] MEDS: PANTOPRAZOLE 40 MG TABLET.DR. PO SCH (08:02)
[2021-08-24] MEDS: NICOTINE 21MG PATCH. TD SCH (08:02)
[2021-08-24] MEDS: MULTIVITAMIN with MINERAL TABLET. PO SCH (09:00)
[2021-08-24] MEDS: SENNOSIDES/DOCUSATE 8.6/50MG TABLET. PO SCH (09:00)
[2021-08-24] MEDS: ISOSORBIDE MONONITRATE ER 30 MG TAB.ER.24H PO SCH (09:00)
[2021-08-24] MEDS: FERROUS SULFATE 325 MG TABLET. PO SCH ×2 (09:00→17:42)
[2021-08-24] MEDS: ASPIRIN ENTERIC COATED 325 MG TABLET.DR. PO SCH ×2 (09:00→21:17)
[2021-08-24] MEDS: MELOXICAM 7.5 MG TABLET PO SCH (09:01)
[2021-08-24] MEDS: ACETAMINOPHEN 500 MG TABLET PO SCH ×3 (09:01→21:17)
[2021-08-24 09:05] VITALS: BP 111/77
[2021-08-24] MEDS: METOPROLOL SUCC 24HR ER 25 MG TAB.ER.24H. PO SCH (09:05)
[2021-08-24] MEDS: IV NORMAL SALINE 1000ML BAG 1,000 ML IV SCH (11:30)
--- NOTE | 2021-08-24 11:48 | CONS ---
DATE OF CONSULTATION: 08/24/2021 INTERNAL MEDICINE CONSULT CHIEF COMPLAINT: Left knee replacement. HISTORY OF PRESENT ILLNESS: The patient is a pleasant middle-aged male who underwent a left knee replacement. We have been requested for postop medical evaluation and treatment of comorbidities. PAST MEDICAL HISTORY: Cervical degenerative disease, hypertension, GERD and hyperlipidemia. ALLERGIES: None. FAMILY HISTORY: Diabetes. SOCIAL HISTORY: He does not drink, smoke or take drugs. MEDICATIONS: Reviewed, please refer to the MRAD. REVIEW OF SYSTEMS: GENERAL: No history of weight change, weakness or fevers. SKIN: No bruising, hair changes or rashes. EYES: No blurred, double or loss of vision. NOSE AND THROAT: No history of nosebleeds, hoarseness or sore throat. HEART: No history of palpitations, chest pain or shortness of breath on exertion. LUNGS: Denies cough, hemoptysis, wheezing or shortness of breath. GASTROINTESTINAL: Denies changes in appetite, nausea, vomiting, diarrhea or constipation. GENITOURINARY: No history of frequency, urgency, hesitancy or nocturia. NEUROLOGIC: Denies history of numbness, tingling, tremor or weakness. PSYCHIATRIC: No history of panic, anxiety or depression. ENDOCRINE: No history of heat or cold intolerance, polyuria or polydipsia. EXTREMITIES: Denies muscle weakness, joint pain, pain on walking or stiffness. PHYSICAL EXAMINATION: VITALS: Within normal limits and are stable. GENERAL: No apparent distress. Alert and oriented. HEENT: Normal cephalic atraumatic, external auditory canals are patent. EYES: Extraocular muscles are intact, pupils are equally round and reactive to light and accommodation. MUSCULOSKELETAL: Well developed, well nourished, good range of motion. ENDOCRINE: No thyromegaly was palpated. LYMPHATICS: No cervical chain or axillary nodes were noted. HEMATOPOIETIC: No bruising. NECK: Supple, no JVD, no thyromegaly was noted. LUNGS: Clear to auscultation in all lung rodas without rhonchi or wheezing. HEART: RRR, S1, S2 present. Peripheral pulses intact, no obvious murmurs were noted. ABDOMEN: Soft, nontender. Positive bowel sounds no organomegaly, normal bowel sounds. EXTREMITIES: He has clean, dry, intact dressing on the left hip. NEUROLOGIC: Normal speech, normal tone. A and O x 3, moves all extremities, no obvious focal deficits. PSYCHIATRIC: Normal affect, normal mood. Stable. SKIN: No ulcerations or rashes, good skin turgor, no jaundice. VASCULAR: Good capillary refill, neurovascular bundle appears to be intact. LABORATORY DATA: COVID testing is negative. Other labs pending. ASSESSMENT AND PLAN: Postoperative left hip replacement. We will check a CBC, BMP, wound care, home medications. Deep vein thrombosis prophylaxis. Full code. Continue p.r.n. pain medications. If he needs alf, we can assist with that. Thank you very much for allowing us to participate in the care of this nice gentleman. DARIN/ANY DR: Milo TID: [id number]
[2021-08-24] MEDS ORDERED: ONDANSETRON ODT 4 MG TAB.RAPDIS. PO PRN (12:00)
[2021-08-24] MEDS ORDERED: ONDANSETRON PF 4 MG/2 ML VIAL. IVP PRN (12:00)
[2021-08-24 12:03] VITALS: BP 122/76
[2021-08-24] MEDS ORDERED: BISACODYL 10 MG SUPP.RECT. PR PRN (16:00)
[2021-08-24 19:55] VITALS: BP 107/66
[2021-08-24] MEDS: ATORVASTATIN CALCIUM 40 MG TABLET. PO SCH (21:17)
[2021-08-25] MEDS: ACETAMINOPHEN 500 MG TABLET PO SCH ×3 (02:40→14:21)
[2021-08-25] MEDS: oxyCODONE IR 5 MG TABLET PO PRN ×2 (02:40→10:40)
[2021-08-25] MEDS: GABAPENTIN 100 MG CAPSULE. PO SCH ×2 (06:18→14:00)
[2021-08-25] MEDS: PANTOPRAZOLE 40 MG TABLET.DR. PO SCH (06:18)
[2021-08-25 06:37] VITALS: BP 121/69
[2021-08-25 06:54] LABS: BASO # 0.1 x10^3/uL (0.0-0.2); BASO % 1 % (0-3); EOS # 0.4 x10^3/uL (0.0-0.7); EOS % 6 % (0-3); HEMATOCRIT 33.9 % (39.0-53.0); LYMPH # 1.8 x10^3/uL (1.0-4.8); LYMPH % 22 % (24-48); MEAN CORPUSCULAR HEMOGLOBIN 30 pg (25-35); MEAN CORPUSCULAR HGB CONC 32 g/dL (31-37); MEAN CORPUSCULAR VOLUME 93 fL (79-100); MONO # 0.7 x10^3/uL (0.0-1.1); MONO % 9 % (0-9); NEUT % 63 % (31-73); PLATELET COUNT 244 x10^3/uL (140-400); RED BLOOD COUNT 3.65 x10^6/uL (4.30-5.70); RED CELL DISTRIBUTION WIDTH 15.2 % (11.5-14.5)
[2021-08-25 07:19] LABS: CREATININE 1.2 mg/dL (0.7-1.3); GFR 64.1; POTASSIUM 4.3 mmol/L (3.5-5.1)
[2021-08-25] MEDS: SENNOSIDES/DOCUSATE 8.6/50MG TABLET. PO SCH (07:23)
[2021-08-25] MEDS: FERROUS SULFATE 325 MG TABLET. PO SCH (07:23)
[2021-08-25] MEDS: MULTIVITAMIN with MINERAL TABLET. PO SCH (07:23)
[2021-08-25] MEDS: ASPIRIN ENTERIC COATED 325 MG TABLET.DR. PO SCH (07:23)
[2021-08-25] MEDS: METOPROLOL SUCC 24HR ER 25 MG TAB.ER.24H. PO SCH (07:24)
[2021-08-25] MEDS: MELOXICAM 7.5 MG TABLET PO SCH (07:24)
--- NOTE | 2021-08-25 08:25 | PDOC ---
[employer] PROGRESS NOTE Date of Service DOS: DATE: 08/25/21 TIME: 08:24 Chief Complaint Chief Complaint Left hip replacement History of Present Illness History of Present Illness 08/25/21 Patient seen and examined In good spirits and feels pain is under control Hopes to d/c home Discussed w RN Chart reviewed Vitals/I&O Vitals/I&O: Vital Signs Date Time Temp Pulse Resp B/P (MAP) Pulse Ox O2 Delivery O2 Flow Rate FiO2 08/25/21 07:24 67 124/74 08/25/21 06:37 97.9 18 96 Room Air 97.9 I & O 08/24/21 08/24/21 08/25/21 15:00 23:00 07:00 Intake Total 100 ml 300 ml Output Total 750 ml Balance 100 ml -450 ml Physical Exam Lungs: Clear Labs Labs: Laboratory Tests Test 08/25/21 06:20 08/25/21 06:30 Sodium Level 142 mmol/L (136-145) Potassium Level 4.3 mmol/L (3.5-5.1) Chloride Level 107 mmol/L (98-107) Carbon Dioxide Level 27 mmol/L (21-32) Anion Gap 8 (6-14) Blood Urea Nitrogen 15 mg/dL (8-26) Creatinine 1.2 mg/dL (0.7-1.3) Estimated GFR (Cockcroft-Gault) 64.1 Glucose Level 110 mg/dL (70-99) Calcium Level 8.0 mg/dL (8.5-10.1) White Blood Count 8.0 x10^3/uL (4.0-11.0) Red Blood Count 3.65 x10^6/uL (4.30-5.70) Hemoglobin 11.0 g/dL (13.0-17.5) Hematocrit 33.9 % (39.0-53.0) Mean Corpuscular Volume 93 fL (79-100) Mean Corpuscular Hemoglobin 30 pg (25-35) Mean Corpuscular Hemoglobin Concent 32 g/dL (31-37) Red Cell Distribution Width 15.2 % (11.5-14.5) Platelet Count 244 x10^3/uL (140-400) Neutrophils (%) (Auto) 63 % (31-73) Lymphocytes (%) (Auto) 22 % (24-48) Monocytes (%) (Auto) 9 % (0-9) Eosinophils (%) (Auto) 6 % (0-3) Basophils (%) (Auto) 1 % (0-3) Neutrophils # (Auto) 5.0 x10^3/uL (1.8-7.7) Lymphocytes # (Auto) 1.8 x10^3/uL (1.0-4.8) Monocytes # (Auto) 0.7 x10^3/uL (0.0-1.1) Eosinophils # (Auto) 0.4 x10^3/uL (0.0-0.7) Basophils # (Auto) 0.1 x10^3/uL (0.0-0.2) Assessment and Plan Assessmemt and Plan Assessment Left hip replacement Plan Postoperative left hip replacement Trend hgb Will d/c home today with Percocet 5mg Incision [facility] medications Deep vein thrombosis prophylaxis Full code. Continue p.r.n. pain medications Comment Review of Relevant I have reviewed the following items myrna (where applicable) has been applied. Medications: Current Medications Medications (Trade) Dose Ordered Sig/Neri Route PRN Reason Start Time Stop Time Status Last Admin Dose Admin Multivitamins (Thera M Plus) 1 tab DAILY PO 08/24/21 09:00 08/25/21 07:23 Acetaminophen (Tylenol) 1,000 mg Q6H PO 08/24/21 09:00 08/25/21 07:23 Meloxicam (Mobic) 15 mg DAILY PO 08/24/21 09:00 08/25/21 07:24 Metoprolol Succinate (Toprol Xl) 25 mg DAILY PO 08/24/21 09:00 08/25/21 07:24 Justifications for Admission Other Justification TED SAMANIEGO III DO Aug 25, 2021 08:25
[2021-08-25] MEDS ORDERED: ONDA4TAB12 PO (08:33)
[2021-08-25] MEDS ORDERED: OXYC-325 PO (08:33)
[2021-08-25] MEDS ORDERED: GABA-585 PO (08:33)
--- NOTE | 2021-08-25 08:34 | SNU/HH DC ---
DISCHARGE WITH HOME HEALTH DISCHARGE INFORMATION: Condition on Discharge: Stable CODE STATUS: Code Status: Full HOME HEALTH: Face to Face: I certify this patient is under my care and that I, or a nurse practitioner or physician's communications assistant working with me, had a face to face encounter that meets the physician face to face encounter requirements with this patient on []. Medical Complications: Other (Recent left hip surgery) Long-Term For: Assess & Educate Safety RN For Eval/Treatment: Yes Physical Therapy For: Evalulation/Treatment Occupational Therapy For: Evaluation/Treatment Home Health Aide For: Self-care RETAIL LOSS PREVENTION INVESTIGATOR For: Community Resources Pt Meets Homebound Status: Unsteady balance w/ amb, POST DISCHARGE ORDERS: Activity Instructions for Disc: Activity as tolerated Weight Bearing Status after Di: Full weight bearing DIET AFTER DISCHARGE: Cardiac CHECKS AFTER DISCHARGE: Checks after discharge: Check blood press - daily TREATMENT/EQUIPMENT ORDERS: Adaptive Equipment Issued: None CERTIFICATION STATEMENT: Certification Statement: Certification Statement: Based on the above finding, I certify that this patient is confined to the home and needs intermittent mcfp care, physical therapy and/or speech therapy, or continues to need occupational therapy.~ This patient is under my care, and I have initiated the establishment of the plan of care.~ This patient will be followed by myself or a community physician who will periodically review the plan of care. Home Meds Active Scripts Oxycodone HCl/Acetaminophen (Percocet 5-325 mg Tablet) 1 Each Tablet, 1 TAB PO QIDPRN PRN for . MDD 4 Tablet(s) for 5 Days, #20 TAB 0 Refills Prov:CASTLE,NIAL K III DO 08/25/21 Ondansetron (ONDANSETRON ODT) 4 Mg Tab.rapdis, 4 MG PO PRN Q6HRS PRN for Nausea/vomiting, 1st choice for 10 Days, #20 TAB Prov:CASTLE,NIAL K III DO 08/25/21 Gabapentin (GABAPENTIN ) 100 Mg Capsule, 100 MG PO Q8HRS for . for 30 Days, #90 CAP Prov:CASTLE,NIAL K III DO 08/25/21 Isosorbide Mononitrate (ISOSORBIDE MONONITRATE ER) 30 Mg Tab.er.24h, 1 TAB PO DAILY for Angina, #30 TAB 5 Refills Prov:COREY SARGENT MD 01/20/21 Reported Medications Aspirin (ASPIRIN EC) 325 Mg Tablet.dr, 1 TAB PO BID for blood thinner for 30 Days, #60 TAB 0 Refills 08/23/21 Loratadine (LORATADINE) 10 Mg Tablet, 1 TAB PO DAILY for , #30 TAB 5 Refills 08/23/21 Meloxicam (MOBIC) 15 Mg Tablet, 1 TAB PO DAILY for , #30 TAB 1 Refill 08/23/21 Ergocalciferol (Vitamin D2) (Vitamin D2) 1,250 Mcg Capsule, 17018 MCG PO WEEKLY for VITAMIN D SUPPLEMENT, CAP 08/20/21 Metoprolol Succinate (METOPROLOL SUCCINATE ( XL )) 25 Mg Tab.er.24h, 25 MG PO DAILY for FOR HYPERTENSION, #30 TAB 0 Refills 08/09/21 Atorvastatin Calcium (Atorvastatin Calcium) 80 Mg Tablet, 80 MG PO QHS for FOR HIGH CHOLESTEROL, TAB 07/30/21 Albuterol Sulfate (PROAIR HFA INHALER) 8.5 Gm Hfa.aer.ad, 2 PUFF IH PRN Q4-6HRS PRN for wheezing for 21 Days, #1 INHALER 0 Refills 07/30/21 Hydrocodone Bit/Acetaminophen (HYDROCODONE-APAP 5-325 ) 1 Tab Tablet, 1 TAB PO PRN Q6HRS PRN for PAIN, TAB 0 Refills 07/30/21 Omeprazole (OMEPRAZOLE) 20 Mg Capsule.dr, 1 CAP PO DAILY for GERD, #30 CAP 5 Refills 11/12/20 TED SAMANIEGO III DO Aug 25, 2021 08:34
[2021-08-25] MEDS: NICOTINE 21MG PATCH. TD SCH (09:00)
[2021-08-25 12:37] VITALS: BP 113/79
[2021-08-25 12:57] VITALS: BP 113/79
[2021-08-25] MEDS: ISOSORBIDE MONONITRATE ER 30 MG TAB.ER.24H PO SCH (12:57)
[2021-08-25] MEDS ORDERED: POLYETHYLENE GLYCOL 3350 17 GM PACKET. PO SCH (13:00)
--- NOTE | 2021-08-25 16:51 | NUR ---
reviewed discharge instructions. he is able to verbalize the hip precautions. reviewed restrictions to activities of daily living such as bathing driving and incisional care. reviewed incisional care. discussed follow up with Dr. Harrison. discussed and reviewed his medications especially the pain medication(Percocet) aspirin and the gabapentin. at bedside. verbalized understanding of these instructions; questions answered. Addendum: 08/25/21 at 1658 by JOSELIN ALLEN RN dismissed to home with Home health for 2 weeks and outpatient therapy for 2 weeks. script given.
--- NOTE | 2021-08-26 09:08 | PATHOLOGY ---
[facility] Accession Number: [id number] . 01 Material submitted: . hip - LEFT HIP BONE AND TISSUE. Modifiers: left . 01 Clinical history: . LEFT TOTAL HIP ARTHROPLASTY . 02 Diagnosis: Femoral head, left total hip arthroplasty: - Avascular necrosis, extensive. - Degenerative arthritis. (JPM:luis a; 08/25/2021) QMS 08/25/2021 1414 Local . 02 Comment: There is no evidence of malignancy. (JPM:luis a; 08/25/2021) . 02 Electronically signed: . Du Alexander MD, Pathologist NPI- [id number] . 01 Gross description: . The specimen is received in formalin, labeled "Du Velazquez, left hip bone and tissue". Received is a femoral head with attached femoral neck measuring 4.4 x 4.4 x 4.7 cm in greatest dimensions. The articular surface is pale villanueva and smooth with a ridge identified measuring 3.7 cm in length. Osteophytic lipping is present. Sectioning reveals pale villanueva to yellow-villanueva cut surfaces with a moderate amount of necrosis identified. Business Reporting Developer sections from the area of necrosis are submitted in cassettes A1 and A2, following decalcification. A bottling equipment sales representative section of uninvolved bone is submitted in cassette A3, following decalcification. (CAA; 08/24/2021) QAC/QAC 08/24/2021 0908 Local . 02 Pathologist provided ICD-10: M87.852, M16.12 . 02 CPT . 227669, 770613 Specimen Comment: A courtesy copy of this report has been sent to [phone], [phone] Specimen Comment: [id number] Specimen Comment: Report sent to / DR GUAJARDO Specimen Comment: A duplicate report has been generated due to demographic updates. Performed at: [address] [facility] [address], [place] [id number] MD Wisam Little MD Phone: [phone] Performed at: 02 [facility] [place] [address] [place], [place] [id number] MD Du Alexander MD Phone: [phone]
--- NOTE | 2021-08-26 13:24 | DS ---
DATE OF DISCHARGE: 08/25/2021 ADMISSION DIAGNOSIS: Left hip osteoarthritis. DISCHARGE DIAGNOSIS: Postoperative left hip replacement. HOSPITAL COURSE: The patient is a pleasant 51-year-old male who presented with left hip pain. We consulted Dr. Harrison. He was taken for left hip replacement. Postoperatively, he did well, will be discharged home. DISPOSITION: Home. ACTIVITY: As tolerated. DIET: Low sodium. DISCHARGE MEDICATIONS: Please see the MRAD. TOTAL TIME: [address]: Milo TID: [id number]
== END 2021-08-25 17:00 | disposition home health service (06) ==
LOC: SURG 08:38 → 4 SOUTHEST 11:27 → INTOOBSV 11:27
PROVIDERS: ADMIT Student in an Organized Health Care Education/Training Program; ATTEND Orthopaedic Surgery
DX: M16.12 Unilateral primary osteoarthritis, left hip (principal); Z20.822 Contact with and (suspected) exposure to COVID-19; I10 Essential (primary) hypertension; K21.9 Gastro-esophageal reflux disease without esophagitis; E78.5 Hyperlipidemia, unspecified; M25.552 Pain in left hip; M87.9 Osteonecrosis, unspecified; F17.210 Nicotine dependence, cigarettes, uncomplicated; Z96.652 Presence of left artificial knee joint; Z79.899 Other long term (current) drug therapy; Z98.890 Other specified postprocedural states
CPT/HCPCS: 27130; 36415; 72170; 80048; 85025; 86850; 86900; 86901; 88304; 88311; 96365; 96366; 96375; 97116; 97150; 97162; 97165; 97530; 97535; 99406; A4213; A4930; A6258; A6550; C1776; G0378; G0379; J0171; J0690; J1100; J1170; J1885; J2270; J2405; J2704; J2795; J3010; J3490